=== PATIENT | female | born 1955 | race Caucasian/White ===

== ENCOUNTER 2021-12-24 07:44 | Outpatient (REF) | payer MEDICARE, SELFPAY ==
[2021-12-24 11:17] LABS: MANUAL DIFF FLAG NO
[2021-12-24 11:25] LABS: Basophils Absolute Auto 0.1 X10*3/uL (0.0-0.2); Basophils Percent Auto 0.9 % (0-2); Eosinophils Absolute Auto 0.3 X10*3/uL (0.0-0.4); Eosinophils Percent Auto 3.7 % (0-4); Hematocrit 44.9 % (37.0-47.0); Imm Gran Abs Auto 0.01 X10*3/uL (0.00-0.03); Imm Gran Pct Auto 0.1 % (0.0-0.4); Lymphocytes Absolute Auto 4.1 X10*3/uL (1.2-4.9); Lymphocytes Percent Auto 59.5 % (20-40); Mean Corpuscular HGB Conc 33.4 g/dl (31.0-35.0); Mean Corpuscular Hemoglobin 33.1 pg (27.0-33.0); Mean Corpuscular Volume 99.1 fL (80.0-98.0); Mean Platelet Volume 9.8 fL (9.4-12.3); Monocytes Absolute Auto 0.5 X10*3/uL (0.1-1.2); Monocytes Percent Auto 7.6 % (2-11); Neutrophils Absolute Auto 1.9 x10*3/uL (2.0-8.3); Neutrophils Percent Auto 28.2 % (45-73); Platelet Count 233 X10*3/uL (160-400); Red Blood Count 4.53 X10*6/uL (4.20-5.50); Red Cell Distribution Width 12.6 % (11.0-16.0); White Blood Count 6.8 X10*3/uL (4.8-10.8)
[2021-12-24 11:56] LABS: Vitamin D 25-OH Total 39.7 ng/mL (>30)
[2021-12-24 12:02] LABS: Alanine Aminotransferase 19 U/L (0-31); Albumin Level 4.6 g/dL (3.5-5.0); Alkaline Phosphatase 80 U/L (39-117); Anion Gap 13 (12-20); Aspartate Amino Transferase 25 U/L (5-31); Bilirubin Total 1.6 mg/dL (0.0-1.0); Blood Urea Nitrogen 12 mg/dL (9-16); Calcium 9.2 mg/dL (8.4-10.2); Carbon Dioxide 27 mmol/L (22-29); Chloride 104 mmol/L (96-108); Cholesterol 261 mg/dL; Estimated Glomerular Filt Rate > 60; Glucose Fasting 101 mg/dL (60-99); HDL Cholesterol 94 mg/dL; LDL Cholesterol Calculated 149 mg/dl; Potassium 4.5 mmol/L (3.3-5.1); Sodium 139 mmol/L (135-145); Total Protein 7.5 g/dL (6.5-8.0); Triglycerides 94 mg/dL
== END 2021-12-24 07:45 | disposition home or self-care (01) ==
LOC: HO.HMGCLDS 07:44
PROVIDERS: Visit Provider Internal Medicine
DX: Z00.01 Encounter for general adult medical examination with abnormal findings (principal); M85.89 Other specified disorders of bone density and structure, multiple sites; N95.9 Unspecified menopausal and perimenopausal disorder; R73.01 Impaired fasting glucose; G25.81 Restless legs syndrome
CPT/HCPCS: 36415; 80053; 80061; 82306; 85025

== ENCOUNTER 2022-04-15 07:54 | Outpatient (REF) | payer MEDICARE, SELFPAY ==
[2022-04-15 12:13] LABS: Cholesterol 270 mg/dL; HDL Cholesterol 99 mg/dL; LDL Cholesterol Calculated 156 mg/dl; Triglycerides 76 mg/dL
== END 2022-04-15 07:55 | disposition home or self-care (01) ==
LOC: HO.HMGCLDS 07:54
PROVIDERS: PCP Internal Medicine; Visit Provider Internal Medicine
DX: E78.5 Hyperlipidemia, unspecified (principal)
CPT/HCPCS: 36415; 80061

== ENCOUNTER 2023-01-08 08:27 | Outpatient (AMB) | payer MEDICARE, SELFPAY ==
--- NOTE | 2023-01-08 08:31 | A.OFFPC_ITS ---
<Statement entered by Nereida Corbett MD - 10/13/24 15:19> This note has been administratively?closed. Vital Signs 01/08/23 08:38 Height 5 ft 5 in Weight 137 lb BMI 22.8 BP 126/70 Blood Pressure Location Rt brachial Position Sitting Pulse 73 Pulse Source Pulse Oximeter Pulse Oximetry (%) 96 Oxygen Delivery Method Room Air Intake Visit Reasons: PE Intake Note: Pt is here today for her PE Allergies No Known Allergies Allergy (Verified 02/25/24 13:16) Medication List - Last Reconciled 01/08/23 by Nereida Corbett MD clonazepam 0.5 mg PO BEDTIME multivitamin 1 tab PO DAILY Tobacco use date assessed: 01/08/23 Fall risk assessment: No Falls in past year Last assessed Fall Risk: 01/08/23 Dental Screening Dental Screen Date: 01/08/23 Did you have a dental visit in the last 12 months?: Yes Did you have a dental problem in the last 6 months where you did not have access to dental care?: No Was dental information given to patient?: Patient has dentist HPI PE HPI Details 60-year-old lady with history of restles s leg syndrome, here today for physical exam. She is up-to-date with her screening mammogram, done April 2022 with benign findings and had a bone density done at, ordered by which showed presence of osteopenia in lumbar spine, left femoral neck and left femur. Had a negative Cologuard testing done 2021, is regular with her bowel movements. She is fairly active, walks at least 4 miles daily and eats healthy. Patient however has about 3 drinks on a daily basis, which consists of gin on ice, and occasional wine and a dram of whiskey . She was recently seen at an urgent care clinic in [place] and diagnosed with acute bronchitis, placed on azithromycin, and benzonatate capsules, with improvement, still has lingering occasional productive cough, but no fever. She did have a chest x-ray done which showed presence of scarring and discoid atelectasis in the major fissure, no acute pathology seen. [facility] Medical History (Updated 02/25/24 @ 13:36 by Nereida Corbett MD) Urinary incontinence History of basal cell carcinoma Macrocytosis without anemia Total bilirubin, elevated Alcohol use History of chronic sinusitis Osteopenia of multiple sites Impaired fasting glucose Restless leg syndrome Surgical History History of fusion of cervical spine S/P FESS (functional endoscopic sinus surgery) H/O sinus surgery Hx of colonoscopy Family History Mother Dementia in corticobasal degeneration, Onset Age: 62 Sister Ovarian cancer, Onset Age: 65 Social History Housing: House Patient Tobacco Use Status: Former Tobacco user e-Cigarette/Vaping Use: Never Used Current occupational status: retired Cognitive needs: No Hearing needs: No Vision needs: Yes Female Reproductive History Menstrual Menopause type: natural Other: Sees Dr. Montes yearly her pelvic exam, and orders bone density scan. Questionnaire PHQ-9 Over the last 2 weeks, how often have you been bothered by any of the following problems? 1. Little interest or pleasure in doing things: not at all 2. Feeling down, depressed, or hopeless: not at all 3. Trouble falling or staying asleep, or sleeping too much: not at all 4. Feeling tired or having little energy: not at all 5. Poor appetite or overeating: not at all 6. Feeling bad about yourself - or that you are a failure or have let yourself or your family down: not at all 7. Trouble concentrating on things, such as reading the newspaper or watching television: not at all 8. Moving or speaking so slowly that other people could have noticed. Or the opposite - being so fidgety or restless that you have been moving around a lot more than usual: not at all 9. Thoughts that you would be better off or of hurting yourself in some way: not at all Total score: 0 Depression Screening Interpretation: Negative 84989 - PHQ-9 Billing: Yes Source: Developed by Drs. Hector Lewis, Bonnie Mart, Darinel Alanis and colleagues, with an educational bryan from [employer]. Thrive Questionnaire Date Thrive assessed: 01/08/23 I am a: Patient What is your living situation today?: I have a steady place to live Within the past 12 months, did the food you bought not last and you didn't have the money to get more?: Never true Within the past 12 months, did you worry whether your food would run out before you got money to buy more?: Never true Do you have trouble paying for medicines?: No Do you have trouble getting transportation to medical appointments?: No Do you have trouble paying your heating and electricity bill?: No Do you have trouble taking care of your child, family member or friend?: No Do you have trouble with day-to-day activities such as bathing, preparing meals, shopping, managing finances, etc.?: No Are you currently unemployed and looking for a job?: No Are you interested in more education?: No AUDIT C Alcohol Use Questionnaire (AUDIT-C) 1. How often do you have a drink containing alcohol?: 4 or more times a week 2. How many drinks containing alcohol do you have on a typical day when you are drinking?: 3 or 4 3. How often do you have six or more drinks on one occasion?: Never Total Score: 5 Score Reviewed/Action Taken: Yes (Patient advised to cut back on her alcohol intake) CINTHIA-7 AMB Questionnaire CINTHIA-7 Date CINTHIA - 7 assessed: 01/08/23 Feeling nervous, anxious, or on edge: 0 = Not at all Not being able to stop or control worryin = Not at all Worrying too much about different things: 0 = Not at all Trouble relaxin = Not at all Being so restless that it is hard to sit still: 0 = Not at all Becoming easily annoyed or irritable: 0 = Not at all Feeling afraid as if something awful might happen: 0 = Not at all Total CINTHIA-7 score (0-4 normal; 5-9 mild; 10-14 moderate; 15-21 severe): 0 Source: Developed by Drs. Hector Lewis, Bonnie Mart, Darinel Alanis and colleagues, with an educational bryan from [employer]. CINTHIA-7 Assessment Billing CINTHIA-7 Assessment Tool: CINTHIA-7 Assessment 54594 Review of Systems Const Denies body aches, Denies fatigue, Denies fever(s), Denies headache(s) and Denies weakness Eyes Details: She would here goes to [place] [facility], has mono vision, wears a contact lens in her left eye and uses her right eye for reading, has an appointment scheduled for later this month ENT Denies dizziness, Denies headache(s), Denies nasal congestion, Denies nasal discharge and Denies sore throat Card Denies chest pain, Denies lightheadedness, Denies palpitations and Denies dyspnea Resp Denies cough, Denies dyspnea and Denies wheezing GI Denies abdominal pain, Denies change in bowel habits and Denies heartburn Denies hematuria, Denies urinary frequency, Denies dysuria and Denies urinary urgency Musc Reports no additional complaints Skin/Breast Details: Sees [facility], had basal cell CA removed from side of her nose recently Denies breast pain, Denies breast mass, Denies lesions and Denies rash Neuro Denies dizziness, Denies headache(s) and Denies weakness Psych Details: takes clonazepam half a tablet prn for restless leg syndrome started by her neurologist Dr. Moreno Reports as per HPI Endo Denies fatigue, Denies polydipsia, Denies polyuria and Denies palpitations Mikie/Lymph Denies easy bruising Aller/Immun Denies seasonal rhinorrhea and Denies wheezing Physical exam (Primary Care) Vital Signs: Last Vital Signs Pulse 73 01/08/23 08:38 BP 126/70 01/08/23 08:38 Pulse Ox 96 01/08/23 08:38 Oxygen Delivery Method Room Air 01/08/23 08:38 BMI result Body Mass Index 22.8 Tobacco/Smoking Status: Tobacco use Status Tobacco use date assessed 01/08/23 01/08/23 08:39 Patient Tobacco Use Status Former Tobacco user 01/08/23 08:31 e-Cigarette/Vaping Use Never Used 01/08/23 08:31 PHQ-9: PHQ-9 Score PHQ-9: Total score 0 01/08/23 10:01 Depression Screening Interpretation: Negative Thrive Assessment: Date of Thrive Assessment Date Thrive assessed 01/08/23 01/08/23 09:23 Const General: comfortable, no acute distress and alert Orientation/consciousness: patient oriented x3 Limitations: no limitations HENMT Ears: external ears normal, TM's normal bilaterally and EAC's normal General nose exam: Normal external nose present and No nasal discharge present Mouth: Normal oral and palatal mucosa present, oropharynx normal and moist mucous membranes Eyes General: appearance normal, both eyes and all related structures Conjunctivae: conjunctivae normal Sclerae: sclerae normal Pupils: Equal, round and reactive pupils present EOM: EOMs intact bilaterally Neck Neck: Yes full ROM, Yes no lymphadenopathy and Yes supple Chest Breast/axilla palpation: normal palpation of the breasts Resp Effort & Inspection: normal respiratory effort and able to speak in complete sentences Auscultation: clear to auscultation bilaterally Cardio Rate: regular rate Rhythm: regular rhythm Heart sounds: S1 normal heart sound present and S2 normal heart sound present GI Palpation (GI): Soft to palpation, nontender and no masses Auscultation: normal bowel sounds General: Yes deferred (sees Dr Montes) Back/Spine/Pelvis Back: No back tenderness Skin General skin exam: no rashes or lesions noted Neuro General: patient oriented x3, gait normal, tone normal, moves all extremities, Normal light touch and pain sensation and no focal motor deficits Cranial nerves: Yes CN's II-XII intact bilaterally and Yes Equal, round and reactive pupils present Cognition (Neuro): normal cognition Extrem General: Yes full ROM, Yes no joint enlargement, Yes no clubbing, cyanosis or edema and Yes no calf tenderness Psych Appearance: grossly normal and well kempt Mental Status: mental status grossly normal Speech and movement: Normal speech and movement present Affect: normal affect Attitude: cooperative Thought process: Normal thought process present Coding Level of Care Code Est Pt Prev Care >65y(86201) Diagnoses Hyperlipidemia E78.5 Alcohol use Z72.89 Osteopenia of multiple sites M85.89 Impaired fasting glucose R73.01 Restless leg syndrome G25.81 Cough R05.9 Family history of ovarian cancer Z80.41 Annual visit for general adult medical examination with abnormal findings Z00.01 Macrocytosis without anemia D75.89 Total bilirubin, elevated R17 Additional Codes CINTHIA-7 Assessment Billing - CINTHIA-7 Assessment Tool: CINTHIA-7 Assessment 24085 ([id number])
[2023-01-08 08:38] VITALS: BP 126/70; PULSE 73; O2SAT 96; BMI 22.8
== END 2023-01-08 09:55 | disposition home or self-care (01) ==
PROVIDERS: Visit Provider Internal Medicine
DX: E78.5 Hyperlipidemia, unspecified (principal); Z72.89 Other problems related to lifestyle; M85.89 Other specified disorders of bone density and structure, multiple sites; R73.01 Impaired fasting glucose; G25.81 Restless legs syndrome; R05.9 Cough, unspecified; Z80.41 Family history of malignant neoplasm of ovary; Z00.01 Encounter for general adult medical examination with abnormal findings; D75.89 Other specified diseases of blood and blood-forming organs; R17 Unspecified jaundice; D72.829 Elevated white blood cell count, unspecified; D72.820 Lymphocytosis (symptomatic)
CPT/HCPCS: 99499

== ENCOUNTER 2023-01-10 07:34 | Outpatient (REF) | payer MEDICARE, SELFPAY ==
[2023-01-10 11:44] LABS: Basophils Absolute Auto 0.1 X10*3/uL (0.0-0.2); Basophils Percent Auto 0.6 % (0-2); Eosinophils Absolute Auto 0.2 X10*3/uL (0.0-0.4); Eosinophils Percent Auto 2.4 % (0-4); Hematocrit 42.6 % (37.0-47.0); Hemoglobin 14.1 g/dl (12.0-16.0); Imm Gran Abs Auto 0.01 X10*3/uL (0.00-0.03); Imm Gran Pct Auto 0.1 % (0.0-0.4); Lymphocytes Absolute Auto 5.1 X10*3/uL (1.2-4.9); Lymphocytes Percent Auto 65.9 % (20-40); MANUAL DIFF FLAG SCAN; Mean Corpuscular HGB Conc 33.1 g/dl (31.0-35.0); Mean Corpuscular Hemoglobin 32.8 pg (27.0-33.0); Mean Corpuscular Volume 99.1 fL (80.0-98.0); Mean Platelet Volume 9.8 fL (9.4-12.3); Monocytes Absolute Auto 0.6 X10*3/uL (0.1-1.2); Monocytes Percent Auto 7.7 % (2-11); Neutrophils Absolute Auto 1.8 x10*3/uL (2.0-8.3); Neutrophils Percent Auto 23.3 % (45-73); Platelet Count 232 X10*3/uL (160-400); Red Cell Distribution Width 11.9 % (11.0-16.0); SCAN SMEAR FLAG 1; White Blood Count 7.8 X10*3/uL (4.8-10.8)
[2023-01-10 12:46] LABS: SLIDE REVIEW VERIFIED
[2023-01-10 13:43] LABS: Estimated Average Glucose 103 mg/dL; Hemoglobin A1c % 5.2 %
[2023-01-10 15:08] LABS: Alanine Aminotransferase 16 U/L (0-31); Albumin Level 4.1 g/dL (3.5-5.0); Alkaline Phosphatase 73 U/L (39-117); Anion Gap 15 (12-20); Aspartate Amino Transferase 24 U/L (5-31); Bilirubin Total 1.2 mg/dL (0.0-1.0); Blood Urea Nitrogen 13 mg/dL (9-16); Calcium 9.4 mg/dL (8.4-10.2); Carbon Dioxide 25 mmol/L (22-29); Chloride 105 mmol/L (96-108); Cholesterol 249 mg/dL; Estimated Glomerular Filt Rate > 60; Glucose Fasting 98 mg/dL (60-99); HDL Cholesterol 87 mg/dL; LDL Cholesterol Calculated 144 mg/dl; Potassium 4.2 mmol/L (3.3-5.1); Sodium 141 mmol/L (135-145); Total Protein 7.2 g/dL (6.5-8.0); Triglycerides 91 mg/dL
[2023-01-10 15:26] LABS: TSH reflex Free T4 3.34 uIU/mL (0.32-4.0); Vitamin D 25-OH Total 74.8 ng/mL (>30)
[2023-01-10 15:42] LABS: Folate 18.7 ng/mL (> or = 4.0); Vitamin B12 553 pg/mL (200-900)
== END 2023-01-10 07:35 | disposition home or self-care (01) ==
LOC: HO.HMGCLDS 07:34
PROVIDERS: PCP Internal Medicine; Visit Provider Internal Medicine
DX: E78.5 Hyperlipidemia, unspecified (principal); M85.89 Other specified disorders of bone density and structure, multiple sites; R73.01 Impaired fasting glucose; G25.81 Restless legs syndrome; R00.2 Palpitations; Z72.89 Other problems related to lifestyle
CPT/HCPCS: 36415; 80053; 80061; 82306; 82607; 82746; 83036; 84443; 85025

== ENCOUNTER 2023-01-13 14:32 | Outpatient (REF) | payer MEDICARE, SELFPAY ==
--- NOTE | ~2023-01-13 | XR_ITS ---
EXAMINATION: XR CHEST CLINICAL INFORMATION: Cough. COMPARISON: None available. TECHNIQUE: 2 views of the chest were obtained. FINDINGS: No significant abnormality is noted involving the heart, lungs, mediastinum, bony thorax or soft tissues. At 2 cervical fixation plate is noted in place. XR/XR chest 2V IMPRESSION: No acute cardiopulmonary process.
== END 2023-01-13 14:33 | disposition home or self-care (01) ==
LOC: HO.HMGCX 14:32
PROVIDERS: PCP Internal Medicine; Visit Provider Internal Medicine
DX: R05.9 Cough, unspecified (principal)
CPT/HCPCS: 71046

== ENCOUNTER 2024-02-25 12:46 | Outpatient (AMB) | payer MEDICARE, SELFPAY ==
--- NOTE | 2024-02-25 12:52 | MHC.PC.OV ---
Vital Signs 02/25/24 12:56 Height 5 ft 5 in Weight 135 lb BMI 22.5 BP 110/80 Blood Pressure Location Lt brachial Position Sitting Pulse 81 Pulse Source Pulse Oximeter Pulse Oximetry (%) 100 Oxygen Delivery Method Room Air Intake Visit Reasons: Annual PE/Booked too soon/ok due for Jan Intake Note: Patient here for physical exam. Last mammo: 2022 BD: 2022 Allergies No Known Allergies Allergy (Verified 02/25/24 13:16) Medication List - Last Reconciled 02/25/24 by Nereida Corbett MD clonazepam 0.5 mg PO BEDTIME multivitamin 1 tab PO DAILY Tobacco use date assessed: 02/25/24 Fall risk assessment: No Falls in past year Last assessed Fall Risk: 02/25/24 Dental Screening Dental Screen Date: 02/25/24 Did you have a dental visit in the last 12 months?: Yes Did you have a dental problem in the last 6 months where you did not have access to dental care?: No Was dental information given to patient?: Patient has dentist HPI Annual PE/Booked too soon/ok due for Jan HPI Details 68-year-old lady here today for physical exam. She is up-to-date with her screening mammogram done at [facility], in 04/2023 with benign findings . Last bone density was done in 2019 ordered by her OB, which showed presence of osteopenia in lumbar spine, left hip and left femur.. Complaining of urinary incontinence occurring at least 6-8 times this year while walking , could not feel the urge to urinate, denies any urinary symptoms. Continues to drink on a regular basis, usually has a martini in the afternoon and occasional wine at night with dinner time. She has restless leg syndrome, prescribed clonazepam 0.5 mg to be taken at bedtime by her previous provider Dr. Moreno. [facility] Medical History (Updated 02/25/24 @ 13:36 by Nereida Corbett MD) Urinary incontinence History of basal cell carcinoma Macrocytosis without anemia Total bilirubin, elevated Alcohol use History of chronic sinusitis Osteopenia of multiple sites Impaired fasting glucose Restless leg syndrome Surgical History History of fusion of cervical spine S/P FESS (functional endoscopic sinus surgery) H/O sinus surgery Hx of colonoscopy Family History Mother Dementia in corticobasal degeneration, Onset Age: 62 Sister Ovarian cancer, Onset Age: 65 Social History Housing: House Patient Tobacco Use Status: Former Tobacco user e-Cigarette/Vaping Use: Never Used Current occupational status: retired Cognitive needs: No Hearing needs: No Vision needs: Yes Questionnaire PHQ-9 Over the last 2 weeks, how often have you been bothered by any of the following problems? 1. Little interest or pleasure in doing things: not at all 2. Feeling down, depressed, or hopeless: not at all 3. Trouble falling or staying asleep, or sleeping too much: not at all 4. Feeling tired or having little energy: several days 5. Poor appetite or overeating: not at all 6. Feeling bad about yourself - or that you are a failure or have let yourself or your family down: not at all 7. Trouble concentrating on things, such as reading the newspaper or watching television: several days 8. Moving or speaking so slowly that other people could have noticed. Or the opposite - being so fidgety or restless that you have been moving around a lot more than usual: not at all 9. Thoughts that you would be better off or of hurting yourself in some way: not at all Total score: 2 Depression Screening Interpretation: Negative Depression Screening Done: Yes 93854 - PHQ-9 Billing: Yes Source: Developed by Drs. Hector Lewis, Bonnie Mart, Darinel Alanis and colleagues, with an educational bryan from [employer]. Thrive Questionnaire Date Thrive assessed: 01/08/23 I am a: Patient What is your living situation today?: I have a steady place to live Within the past 12 months, did the food you bought not last and you didn't have the money to get more?: Never true Within the past 12 months, did you worry whether your food would run out before you got money to buy more?: Never true Do you have trouble paying for medicines?: No Do you have trouble getting transportation to medical appointments?: No Do you have trouble paying your heating and electricity bill?: No Do you have trouble taking care of your child, family member or friend?: No Do you have trouble with day-to-day activities such as bathing, preparing meals, shopping, managing finances, etc.?: No Are you interested in more education?: No Please select the resources that you would like help with: None Currently or been in a relationship where the following occur: No concerns reported THRIVE Score: 0 AUDIT C Alcohol Use Questionnaire (AUDIT-C) 1. How often do you have a drink containing alcohol?: 4 or more times a week (martini in the afternoon, wine at night ) 2. How many drinks containing alcohol do you have on a typical day when you are drinking?: 1 or 2 3. How often do you have six or more drinks on one occasion?: Never Total Score: 4 CINTHIA-7 AMB Questionnaire CINTHIA-7 Date CINTHIA - 7 assessed: 01/08/23 Feeling nervous, anxious, or on edge: 1 = Several days Not being able to stop or control worryin = Not at all Worrying too much about different things: 1 = Several days Trouble relaxin = Not at all Being so restless that it is hard to sit still: 0 = Not at all Becoming easily annoyed or irritable: 0 = Not at all Feeling afraid as if something awful might happen: 0 = Not at all Total CINTHIA-7 score (0-4 normal; 5-9 mild; 10-14 moderate; 15-21 severe): 2 Source: Developed by Drs. Hector Lewis, Bonnie Mart, Darinel Alanis and colleagues, with an educational bryan from [employer]. CINTHIA-7 Assessment Billing CINTHIA-7 Assessment Tool: CINTHIA-7 Assessment 39739 Review of Systems Const Denies body aches, Denies fatigue, Denies fever(s), Denies headache(s) and Denies weakness Eyes Details: She would here goes to [facility], has mono vision, wears a contact lens in her left eye and uses her right eye for reading, has an appointment scheduled for later this month ENT Denies dizziness, Denies headache(s), Denies nasal congestion, Denies nasal discharge and Denies sore throat Card Denies chest pain, Denies lightheadedness, Denies palpitations and Denies dyspnea Resp Denies cough, Denies dyspnea and Denies wheezing GI Denies abdominal pain, Denies change in bowel habits and Denies heartburn Denies hematuria, Denies urinary frequency, Denies dysuria and Denies urinary urgency Musc Reports no additional complaints Skin/Breast Details: Sees [facility], had basal cell CA removed from side of her nose recently Denies breast pain, Denies breast mass, Denies lesions and Denies rash Neuro Denies dizziness, Denies headache(s) and Denies weakness Psych Details: takes clonazepam half a tablet prn for restless leg syndrome started by her neurologist Dr. Moreno Reports as per HPI Endo Denies fatigue, Denies polydipsia, Denies polyuria and Denies palpitations Mikie/Lymph Denies easy bruising Aller/Immun Denies seasonal rhinorrhea and Denies wheezing Physical exam (Primary Care) Vital Signs: Last Vital Signs Pulse 81 02/25/24 12:56 BP 110/80 02/25/24 12:56 Pulse Ox 100 02/25/24 12:56 Oxygen Delivery Method Room Air 02/25/24 12:56 BMI result Body Mass Index 22.5 Tobacco/Smoking Status: Tobacco use Status Tobacco use date assessed 02/25/24 02/25/24 13:00 Patient Tobacco Use Status Former Tobacco user 02/25/24 12:54 e-Cigarette/Vaping Use Never Used 02/25/24 12:54 PHQ-9: PHQ-9 Score PHQ-9: Total score 2 03/01/24 01:32 Depression Screening Interpretation: Negative Thrive Assessment: Date of Thrive Assessment Date Thrive assessed 01/08/23 02/25/24 12:54 Currently or been in a relationship where the following occur: No concerns reported Const General: comfortable, no acute distress and alert Orientation/consciousness: patient oriented x3 Limitations: no limitations HENMT Ears: external ears normal, TM's normal bilaterally and EAC's normal General nose exam: Normal external nose present and No nasal discharge present Mouth: Normal oral and palatal mucosa present, oropharynx normal and moist mucous membranes Eyes General: appearance normal, both eyes and all related structures Conjunctivae: conjunctivae normal Sclerae: sclerae normal Pupils: Equal, round and reactive pupils present EOM: EOMs intact bilaterally Neck Neck: Yes full ROM, Yes no lymphadenopathy and Yes supple Chest Breast/axilla palpation: normal palpation of the breasts Resp Effort & Inspection: normal respiratory effort and able to speak in complete sentences Auscultation: clear to auscultation bilaterally Cardio Rate: regular rate Rhythm: regular rhythm Heart sounds: S1 normal heart sound present and S2 normal heart sound present GI Palpation (GI): Soft to palpation, nontender and no masses Auscultation: normal bowel sounds General: Yes deferred (sees Dr Montes) Back/Spine/Pelvis Back: No back tenderness Skin General skin exam: no rashes or lesions noted Neuro General: patient oriented x3, gait normal, tone normal, moves all extremities, Normal light touch and pain sensation and no focal motor deficits Cranial nerves: Yes CN's II-XII intact bilaterally and Yes Equal, round and reactive pupils present Cognition (Neuro): normal cognition Extrem General: Yes full ROM, Yes no joint enlargement, Yes no clubbing, cyanosis or edema and Yes no calf tenderness Psych Appearance: grossly normal and well kempt Mental Status: mental status grossly normal Speech and movement: Normal speech and movement present Affect: normal affect Attitude: cooperative Thought process: Normal thought process present Assessment and Plan Assessment & Plan (1) Annual visit for general adult medical examination with abnormal findings: Code(s): Z00.01 - Encounter for general adult medical examination with abnormal findings Plan: Will check appropriate labs. Recommended dental visit every 6 months and regular eye exams, at least every 2 years. Take adequate calcium in diet and vitamin-D 3 at 2000 IU per cap once a day, in addition to weight-bearing exercises to help maintain good muscle tone and weight control. Instructed to do self-breast exam, and continue with regular mammogram screening, overdue for her bone density scan again, patient states that she usually gets it done in ordered by Dr. Hager at [facility]. Up-to-date with her screening colonoscopy, had Cologuard done in 2021 which came back with negative finding, due again for recheck in 2023 (2) Macrocytosis without anemia: Code(s): D75.89 - Other specified diseases of blood and blood-forming organs (3) Fatigue: Code(s): R53.83 - Other fatigue (4) Urinary incontinence: Code(s): R32 - Unspecified urinary incontinence Plan: Patient currently on Myrbetriq ER 25 mg once a day (5) Hyperlipidemia: Code(s): E78.5 - Hyperlipidemia, unspecified Plan: Will check fasting lipid panel, continue on a healthy diet and getting regular exercise (6) Alcohol use: Code(s): Z72.89 - Other problems related to lifestyle Plan: Patient strongly advised to cut back on her drinking were abstain altogether. Patient however not interested in joining [employer] or a tendon alcohol support group or take anything to help her stop drinking (7) Osteopenia of multiple sites: Comment: Bone density Ordered by Dr. Carmona 03/25/2019, showing osteopenia in AP spine, left femoral neck and left hip Code(s): M85.89 - Other specified disorders of bone density and structure, multiple sites Plan: Due for a repeat bone density scan, patient states that she has had 1 done at [facility] after the, will get copy of results (8) Restless leg syndrome: Comment: Prescribed clonazepam 0.5 mg at bedtime by Dr. Tim Le Code(s): G25.81 - Restless legs syndrome Plan Ordered CBC, lipid panel, vitamin B12 and folic acid, TSH with free T4, liver enzymes, basic metabolic panel and vitamin-D level. Orders: Orders Complete Blood Count Auto Diff 02/25/24 D75.89 - Other specified diseases of blood and blood-forming organs, E78.5 - Hyperlipidemia, unspecified, R53.83 - Other fatigue, Z13.1 - Encounter for screening for diabetes mellitus, Z13.220 - Encounter for screening for lipoid disorders Lipid Panel 02/25/24 D75.89 - Other specified diseases of blood and blood-forming organs, E78.5 - Hyperlipidemia, unspecified, R53.83 - Other fatigue, Z13.1 - Encounter for screening for diabetes mellitus, Z13.220 - Encounter for screening for lipoid disorders Vitamin B12 and Folate 02/25/24 D75.89 - Other specified diseases of blood and blood-forming organs, E78.5 - Hyperlipidemia, unspecified, R53.83 - Other fatigue, Z13.1 - Encounter for screening for diabetes mellitus, Z13.220 - Encounter for screening for lipoid disorders TSH reflex Free T4 02/25/24 D75.89 - Other specified diseases of blood and blood-forming organs, E78.5 - Hyperlipidemia, unspecified, R53.83 - Other fatigue, Z13.1 - Encounter for screening for diabetes mellitus, Z13.220 - Encounter for screening for lipoid disorders Alanine Aminotransferase 02/25/24 D75.89 - Other specified diseases of blood and blood-forming organs, E78.5 - Hyperlipidemia, unspecified, R53.83 - Other fatigue, Z13.1 - Encounter for screening for diabetes mellitus, Z13.220 - Encounter for screening for lipoid disorders Aspartate Amino Transferase 02/25/24 D75.89 - Other specified diseases of blood and blood-forming organs, E78.5 - Hyperlipidemia, unspecified, R53.83 - Other fatigue, Z13.1 - Encounter for screening for diabetes mellitus, Z13.220 - Encounter for screening for lipoid disorders Basic Metabolic Panel Fasting 02/25/24 D75.89 - Other specified diseases of blood and blood-forming organs, E78.5 - Hyperlipidemia, unspecified, R53.83 - Other fatigue, Z13.1 - Encounter for screening for diabetes mellitus, Z13.220 - Encounter for screening for lipoid disorders Vitamin D 25-OH Total 02/25/24 D75.89 - Other specified diseases of blood and blood-forming organs, E78.5 - Hyperlipidemia, unspecified, R53.83 - Other fatigue, Z13.1 - Encounter for screening for diabetes mellitus, Z13.220 - Encounter for screening for lipoid disorders Medications: New Myrbetriq ER (mirabegron) 25 mg PO DAILY 30 tabs 1RF NS R32 - Unspecified urinary incontinence Coding Level of Care Code Est Pt [facility] Care >65y(04772) Diagnoses Annual visit for general adult medical examination with abnormal findings Z00.01 Macrocytosis without anemia D75.89 Fatigue R53.83 Urinary incontinence R32 Hyperlipidemia E78.5 Alcohol use Z72.89 Osteopenia of multiple sites M85.89 Restless leg syndrome G25.81 Additional Codes CINTHIA-7 Assessment Billing - CINTHIA-7 Assessment Tool: CINTHIA-7 Assessment [id number] ([id number])
[2024-02-25 12:56] VITALS: BP 110/80; PULSE 81; O2SAT 100; BMI 22.5
== END 2024-02-25 13:43 | disposition home or self-care (01) ==
PROVIDERS: PCP Internal Medicine; Visit Provider Internal Medicine
DX: Z00.01 Encounter for general adult medical examination with abnormal findings (principal); D75.89 Other specified diseases of blood and blood-forming organs; R53.83 Other fatigue; R32 Unspecified urinary incontinence; E78.5 Hyperlipidemia, unspecified; Z72.89 Other problems related to lifestyle; M85.89 Other specified disorders of bone density and structure, multiple sites; G25.81 Restless legs syndrome

== ENCOUNTER → 2024-02-25 12:46 | Outpatient (BNVA) | payer MEDICARE, SELFPAY | PROVIDERS: PCP Internal Medicine; Visit Provider Internal Medicine | DX: Z00.01 Encounter for general adult medical examination with abnormal findings (principal); D75.89 Other specified diseases of blood and blood-forming organs; R53.83 Other fatigue; R32 Unspecified urinary incontinence; E78.5 Hyperlipidemia, unspecified; M85.89 Other specified disorders of bone density and structure, multiple sites; G25.81 Restless legs syndrome; Z72.89 Other problems related to lifestyle | CPT/HCPCS: 96127 ==

== ENCOUNTER 2024-03-08 08:15 | Outpatient (REF) | payer MEDICARE, SELFPAY ==
[2024-03-08 10:35] LABS: Hematocrit 44.7 % (37.0-47.0); Hemoglobin 14.9 g/dl (12.0-16.0); Mean Corpuscular HGB Conc 33.3 g/dl (31.0-35.0); Mean Corpuscular Hemoglobin 33.6 pg (27.0-33.0); Mean Corpuscular Volume 100.7 fL (80.0-98.0); Mean Platelet Volume 9.4 fL (9.4-12.3); Platelet Count 238 X10*3/uL (160-400); Red Blood Count 4.44 X10*6/uL (4.20-5.50); Red Cell Distribution Width 12.3 % (11.0-16.0)
[2024-03-08 10:36] LABS: WBC ABN SCTR FOR CBC 1
[2024-03-08 11:10] LABS: Alanine Aminotransferase 24 U/L (0-31); Anion Gap 14 (12-20); Aspartate Amino Transferase 26 U/L (5-31); Blood Urea Nitrogen 12 mg/dL (9-16); Calcium 9.6 mg/dL (8.4-10.2); Carbon Dioxide 27 mmol/L (22-29); Chloride 104 mmol/L (96-108); Cholesterol 248 mg/dL (<200); Estimated Glomerular Filt Rate > 60; Glucose Fasting 106 mg/dL (60-99); HDL Cholesterol 88 mg/dL (>40); LDL Cholesterol Calculated 126 mg/dL (<100); Potassium 4.1 mmol/L (3.3-5.1); Sodium 141 mmol/L (135-145); TSH reflex Free T4 1.46 uIU/mL (0.32-4.0); Triglycerides 173 mg/dL (<150); Vitamin D 25-OH Total 78.1 ng/mL (>30)
[2024-03-08 11:14] LABS: Folate > 20.0 ng/mL (> or = 4.0); Vitamin B12 619 pg/mL (200-900)
[2024-03-08 11:30] LABS: Lymphocytes Percent Manual 79 % (20-40); Monocytes Percent Manual 4 % (2-11); Neutrophils Percent Manual 17 % (45-73)
[2024-03-08 11:32] LABS: Platelet Estimate NORMAL (NORMAL); Platelet Morphology Comment NORMAL; RBC Morphology NORMAL
[2024-03-08 11:39] LABS: Lymphocytes Absolute Manual 11.1 X10*3/uL (1.2-4.9); Monocytes Absolute Manual 0.6 X10*3/uL (0.1-1.2); White Blood Count 14.1 X10*3/uL (4.8-10.8)
[2024-03-08 11:41] LABS: Band Neutrophils Percent 0 % (3-5); Neutrophils Absolute Manual 2.4 X10*3/uL (2.0-8.3)
== END 2024-03-08 08:16 | disposition home or self-care (01) ==
LOC: HO.HMGCLDS 08:15
PROVIDERS: PCP Internal Medicine; Visit Provider Internal Medicine
DX: D75.89 Other specified diseases of blood and blood-forming organs (principal); R53.83 Other fatigue; E78.5 Hyperlipidemia, unspecified; Z13.220 Encounter for screening for lipoid disorders; Z13.1 Encounter for screening for diabetes mellitus
CPT/HCPCS: 36415; 80048; 80061; 82306; 82607; 82746; 84443; 84450; 84460; 85007; 85027

== ENCOUNTER 2024-09-27 10:21 | Outpatient (REF) | payer MEDICARE, SELFPAY ==
[2024-09-27 15:33] LABS: Influenza A PCR NEGATIVE (Negative); Influenza B PCR NEGATIVE (Negative); Resp Syncy Virus RNA Qual PCR NEGATIVE (Negative); SARS COV2 PCR INHOUSE NEGATIVE (Negative)
== END 2024-09-27 10:22 | disposition home or self-care (01) ==
LOC: HO.LAB 10:21
PROVIDERS: PCP Internal Medicine; Visit Provider Physician Assistant
DX: J06.9 Acute upper respiratory infection, unspecified (principal); R09.89 Other specified symptoms and signs involving the circulatory and respiratory systems
CPT/HCPCS: 0241U; 99212

== ENCOUNTER 2024-09-27 10:21 | Outpatient (AMB) | payer MEDICARE, SELFPAY ==
--- NOTE | 2024-09-27 10:24 | AM.OFFWIN_ITS ---
Intake Vital Signs 09/27/24 10:25 Weight 137 lb BP 116/78 Blood Pressure Location Lt brachial Position Sitting Pulse 72 Pulse Source Pulse Oximeter Temp 98.6 F Temp Source Oral Pulse Oximetry (%) 99 Oxygen Delivery Method Room Air Intake Visit Reasons: EP cough, congestion, aches Intake Note: Patient here for cough, congestion and body aches which started friday. Patient Tobacco Use Status: Former Tobacco user Allergies No Known Allergies Allergy (Verified 09/27/24 10:26) Do you need a note to return to daycare/school/sports/work: No HPI HPI Comments History of Present Illness Details History - The patient is a 69-year-old female pr esenting with congestion, cough, and chest pressure x5 days. - Symptoms began last Friday with sli ght severity and have progressively worsened. - The patient has severe nighttime cough ing, waking her , but has no fever on self-assessment. - She reports mild sinus discomfort attr ibuted to congestion, with no ear pain or headache. - Diagnosed with Chronic Lymphocytic Makenna kemia (CLL) six months prior, awaits oncologist follow-up, and no chemotherapy started. - Self-treatment includes albuterol and a decongestant, with alleviation noted. - She recalls a similar illness in Octob er of the previous year, where an inhaler was prescribed. Physical Exam General: Cooperative, healthy appearing, comfortable and no acute distress Orientation/consciousness: Patient oriented x3 Limitations: No limitations Head: Normal to inspection Ears: Hearing grossly normal bilaterally, external ears normal and TM's normal bilaterally Nose: Normal external nose present, Normal nares present and No nasal discharge present Face and sinus: Normal facial exam and Yes sinuses nontender Mouth: Normal oral and palatal mucosa present and moist mucous membranes Throat: Yes tonsils normal, Yes uvula midline. Posterior oropharynx erythema Eyes: Appearance normal, both eyes and all related structures Neck: Normal visual inspection Respiratory: Clear to auscultation bilaterally. Normal respiratory effort, able to speak in complete sentences, Actively coughing, no respiratory distress, not tachypneic, no tripod positioning and no use of accessory muscles Cardiovascular: Regular rate and rhythm. Normal S1 and S2 Skin: No rashes or lesions noted Neuro: Patient oriented x3 Extremities: Normal to inspection and Yes no clubbing, cyanosis or edema [facility] Medical History (Updated 09/27/24 @ 10:52 by Simran Maldonado PA-C) Atypical lymphocytosis Leukocytosis Urinary incontinence History of basal cell carcinoma Macrocytosis without anemia Total bilirubin, elevated Alcohol use History of chronic sinusitis Osteopenia of multiple sites Impaired fasting glucose Restless leg syndrome Surgical History History of fusion of cervical spine S/P FESS (functional endoscopic sinus surgery) H/O sinus surgery Hx of colonoscopy Family History Mother Dementia in corticobasal degeneration, Onset Age: 62 Sister Ovarian cancer, Onset Age: 65 Social History Housing: House Patient Tobacco Use Status: Former Tobacco user e-Cigarette/Vaping Use: Never Used Current occupational status: retired Cognitive needs: No Hearing needs: No Vision needs: Yes Review of Systems Const All systems reviewed & are unremarkable except as noted in HPI and below Physical Exam Vital Signs: Last Vital Signs Temp 98.6 F 09/27/24 10:25 Pulse 72 09/27/24 10:25 BP 116/78 09/27/24 10:25 Pulse Ox 93 09/27/24 10:25 Oxygen Delivery Method Room Air 09/27/24 10:25 Assessment & Plan Assessment & Plan (1) URI, acute: Code(s): J06.9 - Acute upper respiratory infection, unspecified Plan: VSS, pt well appearing and PE unremarkable. I conducted tests for flu, COVID- 19, and RSV, awaiting results. A Tessalon Perles prescription was provided to manage nocturnal coughing, recognizing the risk of prolonged cough suppression. Continuation of current decongestant and inhaler use was advised, supplemented by a daily antihistamine. I affirmed no immediate need for a chest X-ray due to satisfactory oxygen levels and normal lung auscultation. The patient was instructed to return to the clinic if symptomatology worsens, with escalated management including possible corticosteroid therapy and/or CXR considered. Patient was informed and verbally consented to the use of an ambient scribe for clinic note documentation during this visit Orders: Orders SARS-CoV2/FLU/RSV Today R09.89 - Other specified symptoms and signs involving the circulatory and respiratory systems Medications: New benzonatate 200 mg PO BEDTIME PRN 10 caps 0RF cough Coding Level of Care Code Est Pt Level 3 (37202) Diagnoses URI, acute J06.9
[2024-09-27 10:25] VITALS: BP 116/78; PULSE 72; TEMP 37; O2SAT 99
== END 2024-09-27 10:58 | disposition home or self-care (01) ==
PROVIDERS: PCP Internal Medicine; Visit Provider Physician Assistant
DX: J06.9 Acute upper respiratory infection, unspecified (principal)

== ENCOUNTER 2024-09-30 10:05 | Outpatient (REF) | payer MEDICARE, SELFPAY ==
--- NOTE | ~2024-09-30 | XR_ITS ---
EXAMINATION: XR CHEST CLINICAL INFORMATION: R05.9 - Cough, unspecified COMPARISON: January 13, 2023 TECHNIQUE: 2 views of the chest were obtained. FINDINGS: Hyperinflated lungs. No consolidation, pleural effusion or pneumothorax. Pulmonary reticular pattern. Linear opacity right lower hemithorax likely scarring. Cardiomediastinal silhouette size is normal. Calcified plaque thoracic aortic arch. Multilevel thoracic and upper lumbar spondylosis. Osteopenia versus osteoporosis. S-shaped curvature of the thoracolumbar spine. Metallic hardware plate with screws at the C7-T1 level. XR/XR chest 2V IMPRESSION: No acute airspace disease. Consider chronic pulmonary disease. Electronically signed by: Jorge Alberto Capone MD 09/30/2024 11:22 AM EDT
== END 2024-09-30 10:06 | disposition home or self-care (01) ==
LOC: HO.HMGCX 10:05
PROVIDERS: PCP Internal Medicine; Visit Provider Physician Assistant
DX: J06.9 Acute upper respiratory infection, unspecified (principal); R05.9 Cough, unspecified
CPT/HCPCS: 71046; 99212

== ENCOUNTER 2024-09-30 10:05 | Outpatient (AMB) | payer MEDICARE, SELFPAY ==
--- NOTE | 2024-09-30 10:26 | MHC.OFFWIV ---
Intake Vital Signs 09/30/24 10:27 Weight 135 lb BP 120/80 Blood Pressure Location Lt brachial Position Sitting Pulse 86 Pulse Source Pulse Oximeter Temp 97.6 F Temp Source Oral Pulse Oximetry (%) 93 Oxygen Delivery Method Room Air Intake Visit Reasons: EP-chest pressure, cough, wheezing Intake Note: Patient here for chest tightness, cough and wheezing that has not improved Patient Tobacco Use Status: Former Tobacco user Allergies No Known Allergies Allergy (Verified 09/30/24 10:28) Do you need a note to return to daycare/school/sports/work: No HPI HPI Comments History of Present Illness Details History - The patient is a 69-year-old female presenting with worsening respiratory symptoms. - She reports experiencing persistent wheezing and chest tightness for approximately 10 days, notably at night, with no significant improvement. - She was seen at this clinic 3 days ago. Prior tests for COVID, flu, and RSV were negative. - She denies fever but confirms mild shortness of breath and a rattling sensation in the chest, cough and congestion. Denies fevers. - The prescribed inhaler has been used but its content status and effectiveness are unknown. - Tessalon Perles were being used for the cough with mild/partial confirmed relief reported by the patient. Physical Exam General: Cooperative, healthy appearing, comfortable and no acute distress Orientation/consciousness: Patient oriented x3 Limitations: No limitations Head: Normal to inspection Ears: Hearing grossly normal bilaterally, external ears normal, EAC with cerumen on left ear. right TM with fluid and erythema Nose: Normal external nose present, Normal nares present and No nasal discharge present Face and sinus: Normal facial exam and Yes sinuses nontender Mouth: Normal oral and palatal mucosa present and moist mucous membranes Throat: Yes tonsils normal, Yes uvula midline. Posterior oropharynx erythema Eyes: Appearance normal, both eyes and all related structures Neck: Normal visual inspection Respiratory: Clear to auscultation bilaterally. Normal respiratory effort, able to speak in complete sentences, no respiratory distress, not tachypneic, no tripod positioning and no use of accessory muscles Cardiovascular: Regular rate and rhythm. Normal S1 and S2 Skin: No rashes or lesions noted Neuro: Patient oriented x3 Extremities: Normal to inspection and Yes no clubbing, cyanosis or edema [facility] Medical History (Updated 09/27/24 @ 10:52 by Simran Maldonado PA-C) Atypical lymphocytosis Leukocytosis Urinary incontinence History of basal cell carcinoma Macrocytosis without anemia Total bilirubin, elevated Alcohol use History of chronic sinusitis Osteopenia of multiple sites Impaired fasting glucose Restless leg syndrome Surgical History History of fusion of cervical spine S/P FESS (functional endoscopic sinus surgery) H/O sinus surgery Hx of colonoscopy Family History Mother Dementia in corticobasal degeneration, Onset Age: 62 Sister Ovarian cancer, Onset Age: 65 Social History Housing: House Patient Tobacco Use Status: Former Tobacco user e-Cigarette/Vaping Use: Never Used Current occupational status: retired Cognitive needs: No Hearing needs: No Vision needs: Yes Review of Systems Const All systems reviewed & are unremarkable except as noted in HPI and below Physical Exam Vital Signs: Last Vital Signs Temp 97.6 F 09/30/24 10:27 Pulse 86 09/30/24 10:27 BP 120/80 09/30/24 10:27 Pulse Ox 93 09/30/24 10:27 Oxygen Delivery Method Room Air 09/30/24 10:27 Assessment & Plan Assessment & Plan (1) URI, acute: Code(s): J06.9 - Acute upper respiratory infection, unspecified Plan: O2 low at 92% on recheck, other VSS, pt well appearing and PE unremarkable. For the ongoing respiratory symptoms including pt reported wheezing, chest tightness, and decreased saturation, I advised a chest X-ray to evaluate potential underlying causes like pneumonia or extensive lung inflammation. A six-day steroid taper was initiated to manage inflammation and respiratory distress, with instructions on dosing to prevent sleep interruption. The potential initiation of a Z-Gt antibiotic course was considered based on length of illness, will RX 2 abx if PNA on CXR. I educated the patient on expected side effects from the steroid therapy. Steroid therapy observed improvement can guide and limit further interventions. Further, the imaging results will dictate any need for antibiotic prescription, and follow-up communication will occur swiftly once results are available. Asymptomatic fluid noted in the ear raises potential otitis media considerations only if further symptoms develop. I will monitor developments accordingly, ensuring the delivered care is continuous and reactive to findings. Patient was informed and verbally consented to the use of an ambient scribe for clinic note documentation during this visit Orders: Orders XR chest 2V Today R05.9 - Cough, unspecified Medications: New methylprednisolone PO PER PKG DIR for 6 days 21 ea 0RF Coding Level of Care Code Est Pt Level 4 (58059) Diagnoses URI, acute J06.9
[2024-09-30 10:27] VITALS: BP 120/80; PULSE 86; TEMP 36.4; O2SAT 93
--- OUTSIDE RECORDS SUMMARY | 2024-09-30 11:32 | XMS_ITS | Data Portability ---
Author Organization [facility]ade[facility], [address] Address [address] [place] [address] Assessment No assessment recorded. Plan of Treatment Reminders Order Date Submit Date Provider Last Modified By Organization Details Last Modified Time Details Appointments None recorded. Lab rapid strep group A, throat 2022 023 [facility], [address] [place] [address], [id number], 3 10:55:36 SARS CoV 2 (COVID-19) Ag, QL, IA, upper respiratory specimen 2022 023 [email or web address] [facility], [address] [place] [address], [id number], 3 10:55:37 Referral None recorded. Procedures None recorded. Surgeries None recorded. Imaging XR, chest, 2 view 2022 023 [facility], [address] [place] [address], [address], 3 13:18:14 Medication Orders ofloxacin 0.3 % eye drops 2022 023 [facility] #[id number], [address] [facility] [place], [id number], 3 10:57:18 loratadine 10 mg tablet 2022 023 [facility] #95345, [address] [place], [id number], 3 10:55:56 benzonatate 200 mg capsule 2022 023 [facility]44233, [address], [id number], 3 10:55:54 Zithromax Z-Gt 250 mg tablet 2022 023 [facility]78447, [address] [place], [id number], 3 10:56:04 Patient TargetsNo targets recorded. Patient Instructions Encounter Date Encounter Id Patient Instructions Last Modified By Organization Details Last Modified Time 12/20/2022 [id number] acute bronchitis education [email or web address] Not available 12/20/2022 10:55:33 bronchitis: care instructions Not available 12/20/2022 10:55:33 cough: care instructions [email or web address] Not available 12/20/2022 10:55:33 sore throat: car e instructions [email or web address] Not available 12/20/2022 10:55:33 Based on your presentation and exam, you are going diagnosed with Conjunctivitis. I am going to cover you for a bacterial infection in the eye with antibiotic eye drops. Sometimes these symptoms can be caused by a virus or allergies. Viral infections with spontaneously resolve after 7-10 days and do not require treatment. If it is an allergy cause sometime oral allergy medications will help with these symptoms or a allergy eye drop that can be purchased OTC. The following are my recommendations to help with your symptoms and this diagnosis: 1. Do not rub your eyes this can cause it to spread or damage the cornea of your eye. 2. Wash surfaces such as cell phones, remotes, door knob frequently, because this is how it is transmitted to others. 3. Do not wear contacts for at least 1 week if you have contacts. 4. No makeup 5. You can take Ibuprofen or Tylenol for discomfort if you are not allergic to them. 6. If you get lubricating eye drops and put them in the refrigerator - this can help with itching and discomfort. You should be seen again if you develop any of the following symptoms 1. Eye pain or pressure behind the eye. 2. Redness or significant swelling of the eyelid or around the eye 3. Headache 4. Fever > 100.5 5. No improvement in current symptoms in the next 1 week. Thank you for using [facility] today, please feel free to contact us with any questions or concerns. [email or web address] Not available 12/20/2022 10:56:31 Reason for Referral None Reported. Results Created Date Observation Date Name Description Value Unit Range Abnormal Flag Note LastModifiedBy Organization Detail LastModifiedTime 12/21/1912/20/2022 SARS CoV 2 (COVI D-19) Ag, QL, IA, upper respi rator y speci men Unknown Analyte Normal = Negati ve Not Available [address], [address], 12/20/2022 10:42:01 12/21/19 23 12/20/2022 SARS CoV 2 (COVI D-19) Ag, QL, IA, upper respi rator y speci men Unknown Analyte negati ve Not Available [address] [place], [address], 12/20/2022 10:42:01 12/21/19 23 12/20/2022 rapid strep group A, throa t Unknown Analyte Normal = Negati ve Not Available [address] [place] [address], [phone], 12/20/2022 10:16:49 12/21/19 23 12/20/2022 rapid strep group A, throa t Unknown Analyte negati ve Not Available [address] [place] [address], [place], [address], 12/20/2022 10:16:49 12/21/19 XR, chest , 2 view No observ ation record ed. [email or web address] Not Available 2022 13:02:42 07/14/20 23 XR, chest , 2 view No observ ation record ed. [email or web address] [address] [place], [address], 12/20/2022 13:18:14 Result Notes None recorded. Problems Name Problem SNOMED Code Status Onset Date Resolution Date Notes Provider Name and Address Organization Details Recorded Time Secondary restless legs syndrome 564243109 Active 023 LOUISE pa, [place] - [facility] 10:18:01 Problem Notes None recorded. Procedures Surgical History Date Name Laterality Status Provider Name and Address Organization Details Recorded Time nasal sinus procedure completed LOUISE RIZZO PA - [facility] 12/20/2022 10:20:17 operation on lumbar spine completed LOUISE RIZZO PA - [facility] 12/20/2022 10:20:30 Imaging Results Imaging Date Name Status LastModified by Organiz ation Details LastModified Time 12/20/2022 XR, chest, 2 view completed [email or web address] Information not available 12/20/2022 13:02:42 12/20/2022 XR, chest, 2 view completed [email or web address] [address] [place], [address], 12/20/2022 13:18:14 Procedure Notes None recorded. Medical Equipment None Reported. Allergies No known drug allergies Medications Name Sig Start Date Stop Date Status Note LastModified by Organization Details LastModified Time ofloxacin 0.3 % eye drops INSTILL 1 DROP INTO AFFECTED EYE(S) BY OPHTHALMIC ROUTE 4 TIMES PER DAY 2022 active Not Available Not Available Not Avai lable benzonatate 200 mg capsule Take 1 capsule 3 times a day by oral route. 2022 active Not Available Not Available Not Avai lable Zithromax Z-Gt 250 mg tablet Take 2 tablets 1 time a day for 1 day then one tablet daily for 4 days 2022 active Not Available Not Available Not Avai lable loratadine 10 mg tablet Take 1 tablet every day by oral route for 14 days. 2022 active Not Available Not Available Not Avai lable clonazepam active Not Available Not Av ailable Not Available calcium 26-vit D3-magnesium 15 active Not Available Not Available Not Available Vitals Date Recorded Body height Body mass index (BMI) Body weight Pain severity - 0-10 verbal numeric rating [Score] - Reported Respiratory rate Body temperature Oxygen saturation Oxygen saturation in Arterial blood by Pulse oximetry Heart rate Systolic blood pressure Diastolic blood pressure Provider Name and Address Organization Details Last Updated DateTime 3 165.1 cm 21.6 kg/m2 94060.0 1 g 5 18 /min 98.8 [degF] 99 % 99 % 88 /min 119 mm[Hg] 80 mm[Hg] LOUISE SO [facility] 3 10:23:01 Social History Question Answer Notes LastModified by Organizat ion Details LastModified Time Tobacco Smoking Status Former Smoker LOUISE pa, [place] - [facility] 12/20/2022 10:19:06 What Is Your Level Of Alcohol Consumption? Moderate Information not available 12/20/2022 Are You Currently Employed? Yes [employer] Information not available 12/20/2022 Do You Use Any Illicit Or Recreational Drugs? Yes Mja Information not available 12/20/2022 Have You Recently Traveled Abroad? No Information not available 12/20/2022 Are You Currently In School? No Information not available 12/20/2022 Sex: Unknown Functional Status None recorded. Mental Status None recorded. Family History Relationship Description Onset Age of this Age Resolved Age Notes LastModified by Organization Details LastModified Time Father Chronic hepatitis [email or web address] Not available 12/20 10:18:47 Mother Malignant tumor of breast [email or web address] Not available 12/20 10:18:55 Medical History No medical history recorded. Gynecological HistoryNo gynecological history recorded. Obstetrics History GPAL:G 0 P 0 0 0 0 Past Encounters Encounter ID Performer Location Encounter Start Date Encounter Closed Date Diagnosis/Indication Diagnosis SNOMED-CT Code Diagnosis ICD10 Code Diagnosis Note [id number] [facility] [address] [address] 07/04/2019 18:34:27 07/04/2019 19:17:20 [id number] [facility] [address] [facility] [place] [place] [address] 10/07/2021 10:36:42 10/07/2021 12:00:59 [id number] [facility] [address] [facility] [place] [address] 02/13/2018 16:11:30 02/13/2018 17:01:04 [id number] SEBASTIEN PETERSON [address] [address] [facility] [place] [address] 12/20/2022 09:44:05 12/20/2022 11:04:57 Acute pharyngitis 903982035 J02.9 Acute bronchitis 3901742 2 J20.9 Acute conj unctivitis of right eye 1132507811 97047 H10.31 Health Concerns Section Related Observation LastModified by Organization Detai ls LastModified Time None Recorded Concern Status LastModified by Organization Details LastModified Time None Recorded Advance Directives Directive None Recorded Payers Encounter Date Sequence Insurance Name Policy Number Policy Gaona Covered Member ID Gaona Member ID Guarantor Name 07/04/2019 1 [facility] H[place] BLUE (MEDICARE REPLACEMENT HMO) Jane Tapiasosa [id number] Jane Tapiasosa 10/07/2021 1 [facility] MEDIC[place] O BLUE (MEDICARE REPLACEMENT HMO) Jane Tapiasosa [id number] Jane Tapiasosa 12/20/2022 1 [facility] H[place] BLUE (MEDICARE REPLACEMENT HMO) Jane Tapiasosa [id number] Jane Tapiasosa Notes Date Note Type Note Provider Name and Address Organization Details Recorded Time 12/20/2022 text/html COVID-19 SymptomsReported bypatient.Notes:67 y/o female pt presents with ongoing cough, sore throat with congestion x 1 week with now right eye discharge with mild erythema. Pt denies eye pain, visual disturbance or other sx's. Pt has contacts only in one eye. SEBASTIEN PETERSON [facility] [place], [address], [place] - [facility] 12/20/2022 18:22:14 OBGyn Episode No OBEpisode recorded.
== END 2024-09-30 11:05 | disposition home or self-care (01) ==
PROVIDERS: PCP Internal Medicine; Visit Provider Physician Assistant
DX: J06.9 Acute upper respiratory infection, unspecified (principal)

== ENCOUNTER → 2024-09-30 11:01 | Outpatient (BNV) | payer MEDICARE, SELFPAY | PROVIDERS: PCP Internal Medicine; Visit Provider Radiology Diagnostic Radiology | DX: R05.9 Cough, unspecified (principal) | CPT/HCPCS: 71046 ==

== ENCOUNTER 2025-03-09 12:14 | Outpatient (AMB) | payer MEDICARE, SELFPAY ==
--- NOTE | 2025-03-09 12:50 | MHC.PC.OV ---
Vital Signs 03/09/25 12:55 Height 5 ft 4.5 in Weight 134 lb BMI 22.6 BP 110/80 Blood Pressure Location Lt brachial Position Sitting Respiration 16 Pulse 72 Pulse Source Pulse Oximeter Temp 98.0 F Temp Source Oral Pulse Oximetry (%) 94 Oxygen Delivery Method Room Air Intake Visit Reasons: Annual PE Intake Note: Pt is here today for her PE: last mammogram 05/02/24, bone density scan 02/14/22, Cologuard 01/22/25 Puncher Required: No Allergies No Known Allergies Allergy (Verified 03/09/25 13:03) Medication List - Last Reconciled 03/09/25 by Nereida Corbett MD clonazepam 0.5 mg PO BEDTIME multivitamin 1 tab PO DAILY Tobacco use date assessed: 03/09/25 Fall risk assessment: No Falls in past year Last assessed Fall Risk: 03/09/25 Dental Screening Dental Screen Date: 03/09/25 Did you have a dental visit in the last 12 months?: Yes Did you have a dental problem in the last 6 months where you did not have access to dental care?: No Was dental information given to patient?: Patient has dentist HPI Annual PE HPI Details 69-year-old lady here today for her physical exam. She is up-to-date with her screening mammogram, done at [facility], due again for repeat check in April 2025. Colon cancer screening is up-to-date with last Cologuard testing done January 2025 showing negative findings. She is overdue for a bone density scan. Last scan was ordered by her OBGYN Dr. Monique which showed presence of osteopenia at multiple sites. She takes clonazepam 0.5 mg at bedtime prescribed by Dr. Moreno for restless legs syndrome. She has history of basal cell CA, currently being followed at [facility] yearly [facility] Medical History (Updated 03/09/25 @ 13:42 by Nereida Corbett MD) Anxiety and depression Atypical lymphocytosis Leukocytosis Urinary incontinence History of basal cell carcinoma Macrocytosis without anemia Total bilirubin, elevated Alcohol use History of chronic sinusitis Osteopenia of multiple sites Impaired fasting glucose Restless leg syndrome Surgical History History of fusion of cervical spine S/P FESS (functional endoscopic sinus surgery) H/O sinus surgery Hx of colonoscopy Family History Mother Dementia in corticobasal degeneration, Onset Age: 62 Sister Ovarian cancer, Onset Age: 65 Social History Housing: House Patient Tobacco Use Status: Former Tobacco user e-Cigarette/Vaping Use: Never Used Current occupational status: retired Cognitive needs: No Hearing needs: No Vision needs: Yes Questionnaire PHQ-9 Over the last 2 weeks, how often have you been bothered by any of the following problems? 1. Little interest or pleasure in doing things: several days 2. Feeling down, depressed, or hopeless: several days 3. Trouble falling or staying asleep, or sleeping too much: not at all 4. Feeling tired or having little energy: several days 5. Poor appetite or overeating: not at all 6. Feeling bad about yourself - or that you are a failure or have let yourself or your family down: not at all 7. Trouble concentrating on things, such as reading the newspaper or watching television: several days 8. Moving or speaking so slowly that other people could have noticed. Or the opposite - being so fidgety or restless that you have been moving around a lot more than usual: not at all 9. Thoughts that you would be better off or of hurting yourself in some way: not at all Total score: 4 Depression Screening Interpretation: Positive (Started on sertraline today 25 mg daily, referred to mental health coordinator for assistance with getting therapist) Depression Screening Follow-up: New Medication prescribed, Community Mental Health Worker F/U and Follow-up Visit Requested Depression Screening Done: Yes 13572 - PHQ-9 Billing: Yes Source: Developed by Drs. Hector Lewis, Bonnie Mart, Darinel Alanis and colleagues, with an educational bryan from [employer]. Thrive Questionnaire Date Thrive assessed: 03/02/25 I am a: Patient What is your living situation today?: I have a steady place to live Within the past 12 months, did the food you bought not last and you didn't have the money to get more?: Never true Within the past 12 months, did you worry whether your food would run out before you got money to buy more?: Never true Do you have trouble paying for medicines?: No Do you have trouble getting transportation to medical appointments?: No Do you have trouble paying your heating and electricity bill?: No Do you have trouble taking care of your child, family member or friend?: No Do you have trouble with day-to-day activities such as bathing, preparing meals, shopping, managing finances, etc.?: No Are you currently unemployed and looking for a job?: No Are you interested in more education?: No Please select the resources that you would like help with: None Currently or been in a relationship where the following occur: No concerns reported THRIVE Score: 0 AUDIT C Alcohol Use Questionnaire (AUDIT-C) 1. How often do you have a drink containing alcohol?: 4 or more times a week 2. How many drinks containing alcohol do you have on a typical day when you are drinking?: 1 or 2 3. How often do you have six or more drinks on one occasion?: Never Total Score: 4 Score Reviewed/Action Taken: Yes CINTHIA-7 AMB Questionnaire CINTHIA-7 Date CINTHIA - 7 assessed: 03/09/25 Feeling nervous, anxious, or on edge: 1 = Several days Not being able to stop or control worryin = Not at all Worrying too much about different things: 0 = Not at all Trouble relaxin = Not at all Being so restless that it is hard to sit still: 0 = Not at all Becoming easily annoyed or irritable: 0 = Not at all Feeling afraid as if something awful might happen: 0 = Not at all Total CINTHIA-7 score (0-4 normal; 5-9 mild; 10-14 moderate; 15-21 severe): 1 Source: Developed by Drs. Hector Lewis, Bonnie Mart, Darinel Alanis and colleagues, with an educational bryan from [employer]. CINTHIA-7 Assessment Billing CINTHIA-7 Assessment Tool: CINTHIA-7 Assessment 80050 Review of Systems Const Denies body aches, Denies fatigue, Denies headache(s) and Denies weakness Eyes Details: Has an appointment with [facility] coming upe3 ENT Denies dizziness, Denies headache(s) and Denies nasal congestion Card Denies chest pain, Denies lightheadedness, Denies palpitations and Denies dyspnea Resp Denies cough, Denies dyspnea and Denies wheezing GI Denies abdominal pain, Denies change in bowel habits and Denies heartburn Denies hematuria, Denies urinary frequency, Denies dysuria and Denies urinary urgency Musc Reports no additional complaints Skin/Breast Details: currently being seen at [facility] dermatology Denies breast pain, Denies breast mass, Denies lesions and Denies rash Neuro Denies dizziness, Denies headache(s) and Denies weakness Psych Details: takes clonazepam half a tablet prn for restless leg syndrome started by her neurologist Dr. Moreno Reports as per HPI Endo Denies fatigue, Denies polydipsia, Denies polyuria and Denies palpitations Mikie/Lymph Denies easy bruising Aller/Immun Denies seasonal rhinorrhea and Denies wheezing Physical exam (Primary Care) Vital Signs: Last Vital Signs Temp 98.0 F 03/09/25 12:55 Pulse 72 03/09/25 12:55 Resp 16 03/09/25 12:55 BP 110/80 03/09/25 12:55 Pulse Ox 94 03/09/25 12:55 Oxygen Delivery Method Room Air 03/09/25 12:55 BMI result Body Mass Index 22.6 Tobacco/Smoking Status: Tobacco use Status Tobacco use date assessed 03/09/25 03/09/25 12:53 Patient Tobacco Use Status Former Tobacco user 03/09/25 12:53 e-Cigarette/Vaping Use Never Used 03/09/25 12:53 PHQ-9: PHQ-9 Score PHQ-9: Total score 4 03/09/25 13:04 Depression Screening Interpretation: Positive (Started on sertraline today 25 mg daily, referred to mental health coordinator for assistance with getting therapist) Depression Screening Follow-up: New Medication prescribed, Community Mental Health Worker F/U and Follow-up Visit Requested Thrive Assessment: Date of Thrive Assessment Date Thrive assessed 03/02/25 03/09/25 12:53 Currently or been in a relationship where the following occur: No concerns reported Const General: comfortable, no acute distress and alert Orientation/consciousness: patient oriented x3 HENMT Ears: external ears normal, TM's normal bilaterally and EAC's normal General nose exam: Normal external nose present Mouth: Normal oral and palatal mucosa present and moist mucous membranes Eyes General: appearance normal, both eyes and all related structures Conjunctivae: conjunctivae normal Sclerae: sclerae normal Pupils: Equal, round and reactive pupils present EOM: EOMs intact bilaterally Neck Neck: Yes full ROM, Yes no lymphadenopathy and Yes supple Chest Breast/axilla palpation: normal palpation of the breasts Resp Effort & Inspection: normal respiratory effort and able to speak in complete sentences Auscultation: clear to auscultation bilaterally Cardio Rate: regular rate Rhythm: regular rhythm Heart sounds: S1 normal heart sound present and S2 normal heart sound present GI Palpation (GI): Soft to palpation, nontender and no masses Auscultation: normal bowel sounds General: Yes deferred (sees Dr Montes) Back/Spine/Pelvis Back: No back tenderness Skin General skin exam: no rashes or lesions noted Neuro General: patient oriented x3, gait normal, tone normal, moves all extremities, Normal light touch and pain sensation and no focal motor deficits Cranial nerves: Yes CN's II-XII intact bilaterally and Yes Equal, round and reactive pupils present Cognition (Neuro): normal cognition Extrem General: Yes full ROM, Yes no joint enlargement, Yes no clubbing, cyanosis or edema and Yes no calf tenderness Psych Appearance: grossly normal and well kempt Mental Status: mental status grossly normal Speech and movement: Normal speech and movement present Affect: normal affect Coding Level of Care Code Est Pt Prev Care >65y(89755) Diagnoses Annual visit for general adult medical examination with abnormal findings Z00.01 Impaired fasting glucose R73.01 Osteopenia of multiple sites M85.89 Hyperlipidemia E78.5 Anxiety and depression F41.9; F32.A Additional Codes CINTHIA-7 Assessment Billing - CINTHIA-7 Assessment Tool: CINTHIA-7 Assessment 01594 ([id number]) PHQ-9 - 20615 - PHQ-9 Billing: Yes ([id number]) Assessment & Plan Assessment & Plan (1) Annual visit for general adult medical examination with abnormal findings: Code(s): Z00.01 - Encounter for general adult medical examination with abnormal findings Plan: Will check appropriate labs. Recommended dental visit every 6 months and regular eye exams, at least every 2 years. Take adequate calcium in diet and vitamin-D 3 at 2000 IU per cap once a day, in addition to weight-bearing exercises to help maintain good muscle tone and weight control. Instructed to do self-breast exam, and continue to get yearly mammogram. Currently sees [facility]BG[facility], Dr. Montes for her pelvic exam and being followed for osteopenia multiple sites. Had a negative Cologuard test done this year, repeat due again in 2027. Reminded to get her yearly flu vaccine and COVID booster, up-to-date with her pneumonia vaccination and shingles vaccines (2) Impaired fasting glucose: Code(s): R73.01 - Impaired fasting glucose Category: Medical Plan: Your previous fasting blood sugars were elevated above 100 mg/dL. Impaired glucose metabolism increases the risk for developing diabetes mellitus type 2, as well as heart attack and stroke later on. Lifestyle changes that promotes weight loss, healthy eating habits, and regular exercise are important, and can prevent the progression to diabetes (3) Osteopenia of multiple sites: Comment: Bone density Ordered by Dr. Carmona 03/25/2019, showing osteopenia in AP spine, left femoral neck and left hip Code(s): M85.89 - Other specified disorders of bone density and structure, multiple sites Category: Medical Plan: Patient currently being followed by OBGYN, request most recent bone density scan results. Encouraged to do regular weight-bearing exercise, take adequate calcium from dietary sources and take at least 2000 units of vitamin D3 supplements daily (4) Hyperlipidemia: Code(s): E78.5 - Hyperlipidemia, unspecified Category: Medical Plan: Fasting lipid panel ordered today (5) Anxiety and depression: Code(s): F41.9 - Anxiety disorder, unspecified; F32.A - Depression, unspecified Category: Medical Plan: Started on sertraline 25 mg per tablet to take initially 1 tablet once a day, may increase dose to 2 tablets or 50 mg on the 2nd week if no improvement of symptoms. Referred to our mental health coordinator Parul for assistance getting in to be seen by therapist and psychiatrist Orders: Orders Alanine Aminotransferase 03/11/25 E78.5 - Hyperlipidemia, unspecified, M85.89 - Other specified disorders of bone density and structure, multiple sites, R73.01 - Impaired fasting glucose Lipid Panel 03/11/25 E78.5 - Hyperlipidemia, unspecified, M85.89 - Other specified disorders of bone density and structure, multiple sites, R73.01 - Impaired fasting glucose Vitamin D 25-OH Total 03/11/25 E78.5 - Hyperlipidemia, unspecified, M85.89 - Other specified disorders of bone density and structure, multiple sites, R73.01 - Impaired fasting glucose Aspartate Amino Transferase 03/11/25 E78.5 - Hyperlipidemia, unspecified, M85.89 - Other specified disorders of bone density and structure, multiple sites, R73.01 - Impaired fasting glucose Glucose Fasting 03/11/25 E78.5 - Hyperlipidemia, unspecified, M85.89 - Other specified disorders of bone density and structure, multiple sites, R73.01 - Impaired fasting glucose Hemoglobin A1c 03/11/25 E78.5 - Hyperlipidemia, unspecified, M85.89 - Other specified disorders of bone density and structure, multiple sites, R73.01 - Impaired fasting glucose Medications: New sertraline 25 mg PO DAILY 30 tabs 1RF F32.A - Depression, unspecified, F41.9 - Anxiety disorder, unspecified
[2025-03-09 12:55] VITALS: BP 110/80; PULSE 72; RESP 16; TEMP 36.7; O2SAT 94; BMI 22.6
== END 2025-03-09 14:15 | disposition home or self-care (01) ==
LOC: HO.HMCC 12:15
PROVIDERS: PCP Internal Medicine; Visit Provider Internal Medicine
DX: Z00.01 Encounter for general adult medical examination with abnormal findings (principal); R73.01 Impaired fasting glucose; M85.89 Other specified disorders of bone density and structure, multiple sites; E78.5 Hyperlipidemia, unspecified; F41.9 Anxiety disorder, unspecified; F32.A Depression, unspecified

== ENCOUNTER → 2025-03-09 12:14 | Outpatient (BNVA) | payer MEDICARE, SELFPAY | PROVIDERS: PCP Internal Medicine; Visit Provider Internal Medicine | DX: Z00.01 Encounter for general adult medical examination with abnormal findings (principal); R73.01 Impaired fasting glucose; F32.A Depression, unspecified; M85.89 Other specified disorders of bone density and structure, multiple sites; E78.5 Hyperlipidemia, unspecified; F41.9 Anxiety disorder, unspecified | CPT/HCPCS: 96127; 99397 ==

== ENCOUNTER 2025-03-11 08:35 | Outpatient (REF) | payer MEDICARE, SELFPAY ==
[2025-03-11 10:49] LABS: Alanine Aminotransferase 16 U/L (0-31); Aspartate Amino Transferase 27 U/L (5-31); Cholesterol 240 mg/dL (<200); HDL Cholesterol 75 mg/dL (>40); Triglycerides 185 mg/dL (<150)
== END 2025-03-11 08:36 | disposition home or self-care (01) ==
LOC: HO.HMGCLDS 08:35
PROVIDERS: PCP Internal Medicine; Visit Provider Internal Medicine
DX: M85.89 Other specified disorders of bone density and structure, multiple sites (principal); E78.5 Hyperlipidemia, unspecified; R73.01 Impaired fasting glucose
CPT/HCPCS: 36415; 80061; 82306; 82947; 83036; 84450; 84460

== ENCOUNTER 2025-04-06 09:41 | Outpatient (AMB) | payer MEDICARE, SELFPAY ==
[2025-04-06 10:06] VITALS: BP 134/80; PULSE 79; RESP 16; TEMP 36.6; O2SAT 93; BMI 22.8
--- NOTE | 2025-04-06 10:06 | MHC.PC.OV ---
Vital Signs 04/06/25 10:06 Height 5 ft 4.5 in Weight 135 lb BMI 22.8 BP 134/80 Blood Pressure Location Rt brachial Position Sitting Respiration 16 Pulse 79 Pulse Source Pulse Oximeter Temp 97.9 F Temp Source Oral Pulse Oximetry (%) 93 Oxygen Delivery Method Room Air Intake Visit Reasons: 4 week follow up Intake Note: Pt is here today for her 4weeks f/u Allergies No Known Allergies Allergy (Verified 04/06/25 10:16) Medication List - Last Reconciled 04/06/25 by Nereida Corbett MD clonazepam 0.5 mg PO BEDTIME multivitamin 1 tab PO DAILY Tobacco use date assessed: 04/06/25 Fall risk assessment: No Falls in past year Last assessed Fall Risk: 04/06/25 Dental Screening Dental Screen Date: 04/06/25 Did you have a dental visit in the last 12 months?: Yes Did you have a dental problem in the last 6 months where you did not have access to dental care?: No Was dental information given to patient?: Patient has dentist HPI 4 week follow up HPI Details The patient is a 70-year-old female presenting for follow-up on her mental health and a review of recent lab work. She has elected not to take the prescribed sertraline and has instead chosen to pursue counseling for what she describes as a mix of anxiety and depression. She has had one intake session with a therapist at [facility] and has a follow-up appointment scheduled for April 25. The patient reports that her depression is exacerbated by the change of seasons and darkness, consistent with seasonal affective disorder. She recently experienced an episode of acute anxiety, which she described as a physical feeling that eventually passed on its own. Contributing stressors include her 's difficult recovery from back surgery in February, which has limited their social activities. For medication management, she takes half a pill of clonazepam at bedtime for restless legs, which she notes also helps with anxiety. Her restless leg symptoms primarily occur around 6 p.m. She keeps the other half of the clonazepam pill by her bedside in case it is needed but has not had to use it for an acute panic attack. The patient consumes two alcoholic drinks (martinis) per day. Recent lab results show a normal blood glucose of 97 mg/dL and an A1c of 5.4%,. Her total cholesterol decreased slightly to 240 mg/dL, with LDL cholesterol at 128 mg/dL. However, her triglycerides increased to 185 mg/dL from 173 mg/dL, which is attributed to alcohol and her diet, including rice and pasta. The patient confirms that she is up to date with her immunizations, including COVID-19, influenza, pneumonia, shingles, and RSV vaccines. [facility] Medical History (Updated 04/06/25 @ 10:41 by Nereida Corbett MD) Anxiety and depression Atypical lymphocytosis Leukocytosis Urinary incontinence History of basal cell carcinoma Macrocytosis without anemia Total bilirubin, elevated Alcohol use History of chronic sinusitis Osteopenia of multiple sites Impaired fasting glucose Restless leg syndrome Surgical History History of fusion of cervical spine S/P FESS (functional endoscopic sinus surgery) H/O sinus surgery Hx of colonoscopy Family History Mother Dementia in corticobasal degeneration, Onset Age: 62 Sister Ovarian cancer, Onset Age: 65 Social History Housing: House Patient Tobacco Use Status: Former Tobacco user e-Cigarette/Vaping Use: Never Used Current occupational status: retired Cognitive needs: No Hearing needs: No Vision needs: Yes Questionnaire PHQ-9 Over the last 2 weeks, how often have you been bothered by any of the following problems? 1. Little interest or pleasure in doing things: several days 2. Feeling down, depressed, or hopeless: not at all 3. Trouble falling or staying asleep, or sleeping too much: not at all 4. Feeling tired or having little energy: several days 5. Poor appetite or overeating: not at all 6. Feeling bad about yourself - or that you are a failure or have let yourself or your family down: several days 7. Trouble concentrating on things, such as reading the newspaper or watching television: several days 8. Moving or speaking so slowly that other people could have noticed. Or the opposite - being so fidgety or restless that you have been moving around a lot more than usual: several days 9. Thoughts that you would be better off or of hurting yourself in some way: not at all Total score: 5 Depression Screening Interpretation: Positive (Currently now seeing a therapist at [facility], does not want to start med medication at present time) Depression Screening Follow-up: Existing condition, In treatment and Community Mental Health Worker F/U Depression Screening Done: Yes 98714 - PHQ-9 Billing: Yes Source: Developed by Drs. Hector Lewis, Bonnie Mart, Darinel Alanis and colleagues, with an educational bryan from [employer]. Thrive Questionnaire Date Thrive assessed: 03/02/25 I am a: Patient What is your living situation today?: I have a steady place to live Within the past 12 months, did the food you bought not last and you didn't have the money to get more?: Never true Within the past 12 months, did you worry whether your food would run out before you got money to buy more?: Never true Do you have trouble paying for medicines?: No Do you have trouble getting transportation to medical appointments?: No Do you have trouble paying your heating and electricity bill?: No Do you have trouble taking care of your child, family member or friend?: No Do you have trouble with day-to-day activities such as bathing, preparing meals, shopping, managing finances, etc.?: No Are you currently unemployed and looking for a job?: No Are you interested in more education?: No Please select the resources that you would like help with: None Currently or been in a relationship where the following occur: No concerns reported THRIVE Score: 0 CINTHIA-7 AMB Questionnaire CINTHIA-7 Date CINTHIA - 7 assessed: 03/09/25 Feeling nervous, anxious, or on edge: 1 = Several days Not being able to stop or control worryin = Not at all Worrying too much about different things: 0 = Not at all Trouble relaxin = Not at all Being so restless that it is hard to sit still: 0 = Not at all Becoming easily annoyed or irritable: 0 = Not at all Feeling afraid as if something awful might happen: 0 = Not at all Total CINTHIA-7 score (0-4 normal; 5-9 mild; 10-14 moderate; 15-21 severe): 1 Source: Developed by Drs. Hector Lewis, Darinel Lake Kroenke and colleagues, with an educational bryan from [employer]. CINTHIA-7 Assessment Billing CINTHIA-7 Assessment Tool: CINTHIA-7 Assessment 48551 Review of Systems Const All systems reviewed & are unremarkable except as noted in HPI and below Physical exam (Primary Care) Vital Signs: Last Vital Signs Temp 97.9 F 04/06/25 10:06 Pulse 79 04/06/25 10:06 Resp 16 04/06/25 10:06 BP 134/80 04/06/25 10:06 Pulse Ox 93 04/06/25 10:06 Oxygen Delivery Method Room Air 04/06/25 10:06 BMI result Body Mass Index 22.8 Tobacco/Smoking Status: Tobacco use Status Tobacco use date assessed 04/06/25 04/06/25 10:13 Patient Tobacco Use Status Former Tobacco user 04/06/25 10:13 e-Cigarette/Vaping Use Never Used 04/06/25 10:13 PHQ-9: PHQ-9 Score PHQ-9: Total score 5 04/06/25 10:42 Depression Screening Interpretation: Positive (Currently now seeing a therapist at [facility], does not want to start med medication at present time) Depression Screening Follow-up: Existing condition, In treatment and Community Mental Health Worker F/U Thrive Assessment: Date of Thrive Assessment Date Thrive assessed 03/02/25 04/06/25 10:13 Currently or been in a relationship where the following occur: No concerns reported Const General: comfortable, no acute distress and alert Orientation/consciousness: patient oriented x3 HENMT Ears: external ears normal General nose exam: Normal external nose present Mouth: moist mucous membranes Eyes General: appearance normal, both eyes and all related structures Neck Neck: Yes full ROM, Yes no lymphadenopathy and Yes supple Resp Effort & Inspection: normal respiratory effort and able to speak in complete sentences Auscultation: clear to auscultation bilaterally Cardio Rate: regular rate Rhythm: regular rhythm Heart sounds: S1 normal heart sound present and S2 normal heart sound present GI Palpation (GI): Soft to palpation, nontender and no masses Auscultation: normal bowel sounds Neuro General: patient oriented x3, gait normal, tone normal, moves all extremities, Normal light touch and pain sensation and no focal motor deficits Cranial nerves: Yes CN's II-XII intact bilaterally Cognition (Neuro): normal cognition Extrem General: Yes full ROM, Yes no joint enlargement, Yes no clubbing, cyanosis or edema and Yes no calf tenderness Psych Appearance: grossly normal and well kempt Mental Status: mental status grossly normal Speech and movement: Normal speech and movement present Affect: normal affect Results Reviewed Results Reviewed: Name: Jane Baltazar Age/Sex: 69/F : 1955 Unit#: [id number] Attend Dr: Nereida Corbett MD Re03/11/25 Status: DEP REF Location: [facility] Disch: SPEC : [id number] DAVI: 03/11/25 STATUS: COMP REQ : [id number] RECD: 03/11/[address]: Nereida Corbett MD COMP: 03/11/25 ENTERED: 03/11/[address]: ORDERED: Glu Fasting, AST, ALT, Lipid Panel, Vitamin D 25-OH Test Result Flag Reference FBS 97 60-99 mg/dL AST (GOT) 27 5-31 U/L ALT (GPT) 16 0-31 U/L Triglyceride 185 H <150 mg/dL Desirable Triglyceride: less than 150 mg/dL Borderline High Triglyceride 150-199 mg/dL High Triglyceride: 200-499 mg/dL Very High Triglyceride: greater than or equal to 5OO mg/dL Cholesterol 240 H <200 mg/dL Desirable Cholesterol: less than 200 mg/dL Borderline High Cholesterol: 200-239 mg/dL High Cholesterol: greater than 239 mg/dL LDL Calculated 128 H <100 mg/dL Desirable LDL: less than 100 mg/dL Near Optimal/Above Optimal LDL: 110-129 mg/dL Borderline High LDL: 130-159 mg/dL High LDL: 160-189 mg/dL Very High LDL: greater than or equal to 190 mg/dL HDL 75 >40 mg/dL Desirable HDL: greater than 40 mg/dL Note: This HDL assay may give artificially low results in patients with liver disease. Vitamin D 25-OH 137.3 >30 ng/mL Health Based Reference Values* < 20 ng/mL Deficient 20-30 ng/mL Insufficient > 30 ng/mL Sufficient Coding Level of Care Code Est Pt Level 4 (55277) Complex EM visit Add On G2211 Diagnoses Anxiety and depression F41.9; F32.A Alcohol use Z72.89 Hyperlipidemia E78.5 Impaired fasting glucose R73.01 Restless leg syndrome G25.81 Additional Codes PHQ-9 - 13499 - PHQ-9 Billing: Yes ([id number]) CINTHIA-7 Assessment Billing - CINTHIA-7 Assessment Tool: CINTHIA-7 Assessment 12325 ([id number]) Assessment & Plan Assessment & Plan (1) Anxiety and depression: Code(s): F41.9 - Anxiety disorder, unspecified; F32.A - Depression, unspecified Category: Medical (2) Alcohol use: Code(s): Z72.89 - Other problems related to lifestyle Category: Social Hx (3) Hyperlipidemia: Code(s): E78.5 - Hyperlipidemia, unspecified Category: Medical (4) Impaired fasting glucose: Code(s): R73.01 - Impaired fasting glucose Category: Medical (5) Restless leg syndrome: Comment: Prescribed clonazepam 0.5 mg at bedtime by Dr. Tim Le Code(s): G25.81 - Restless legs syndrome Category: Medical Plan 1. 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 She has started counseling at [facility]. Plan: Continue with psychotherapy. Advised that clonazepam can be taken as needed for severe anxiety or panic attacks. Encouraged lifestyle modifications for seasonal symptoms, such as having bright lights, using her fireplace, and planning social outings. Will follow up with her therapist and consider a psychiatric consultation if needed. Strongly advised to cut back on her alcohol intake 2. Hyperlipidemia Laboratory results show borderline high cholesterol (Total 240, LDL 128) and elevated triglycerides (185), likely secondary to diet and daily alcohol consumption. Plan: Advised to start [id number] fish oil supplements, one or two capsules daily, to help lower triglycerides. Recommended dietary changes, including increasing consumption of oily fish like wild-caught salmon, as well as wheat germ and flaxseed, while reducing intake of rice and pasta. 3. Restless legs syndrome The patient effectively manages her symptoms with a low dose (half a pill) of clonazepam at bedtime. Plan: Continue taking clonazepam as needed at night for her restless legs. 4. Health Maintenance The patient is up-to-date on her immunizations, including COVID-19, influenza, pneumonia, shingles, and RSV. Plan: Patient is scheduled for her next annual physical in May of next year. Patient was informed and verbally consented to the use of an ambient scribe for clinic note documentation during this visit.
--- OUTSIDE RECORDS SUMMARY | 2025-04-06 11:34 | XMS_ITS | Data Portability ---
Author Organization SEBASTIEN Trin[facility], [address] Address [address] [place] [address] Assessment No assessment recorded. Plan of Treatment Reminders Order Date Submit Date Provider Last Modified By Organization Details Last Modified Time Details Appointments None recorded. Lab rapid strep group A, throat 2022 023 [email or web address] _[facility], [address] [place] [address], [id number], 3 10:55:36 SARS CoV 2 (COVID-19) Ag, QL, IA, upper respiratory specimen 2022 023 _[facility], [address] [place] [address], [id number], 3 10:55:37 Referral None recorded. Procedures None recorded. Surgeries None recorded. Imaging XR, chest, 2 view 2022 023 [facility], [address] [place] [address], [address], 3 13:18:14 Medication Orders ofloxacin 0.3 % eye drops 2022 023 [id number], [address] [place], [id number], 3 10:57:18 loratadine 10 mg tablet 2022 023 [facility] #57885, [address] [place], [id number], 3 10:55:56 benzonatate 200 mg capsule 2022 023 [id number], [address], [id number], 3 10:55:54 Zithromax Z-Gt 250 mg tablet 2022 [address] [facility], [address] [place], [id number], 3 10:56:04 Patient TargetsNo targets recorded. Patient Instructions Encounter Date Encounter Id Patient Instructions Last Modified By Organization Details Last Modified Time 12/20/2022 [id number] acute bronchitis education Not available 12/20/2022 10:55:33 bronchitis: care instructions [email or web address] Not available 12/20/2022 10:55:33 cough: care instructions Not available 12/20/2022 10:55:33 sore throat: car e instructions [email or web address] Not available 12/20/2022 10:55:33 Based on your [...] next 1 week. Thank you for using [employer] today, please feel free to contact us with any questions or concerns. [email or web address] Not available 12/20/2022 10:56:31 Reason for Referral None Reported. Results Created Date Observation Date Name Description Value Unit Range Abnormal Flag Note LastModifiedBy Organization Detail LastModifiedTime 12/21/1912/20/2022 SARS CoV 2 (COVI D-19) Ag, QL, IA, upper respi rator y speci men Unknown Analyte Normal = Negati ve Not Available [address], [address], 12/20/2022 10:42:01 12/21/19 23 12/20/2022 SARS CoV 2 (COVI D-19) Ag, QL, IA, upper respi rator y speci men Unknown Analyte negati ve Not Available [address] [place] [address], [phone], 12/20/2022 10:42:01 12/21/19 23 12/20/2022 rapid strep group A, throa t Unknown Analyte Normal = Negati ve Not Available [address] [place] [address], [phone], 12/20/2022 10:16:49 12/21/19 23 12/20/2022 rapid strep group A, throa t Unknown Analyte negati ve Not Available [address] [place] [address], [phone], 12/20/2022 10:16:49 12/21/19 XR, chest , 2 view No observ ation record ed. [email or web address] Not Available 2022 13:02:42 12/21/19 23 XR, chest , 2 view No observ ation record ed. [email or web address] [facility] [address] [facility] [place], [address], 12/20/2022 13:18:14 Result Notes None recorded. Problems Name Problem SNOMED Code Status Onset Date Resolution Date Notes Provider Name and Address Organization Details Recorded Time Secondary restless legs syndrome [id number] Active 023 LOUISE pa, [place] - [facility] 10:18:01 Problem Notes None recorded. Procedures Surgical History Date Name Laterality Status Provider Name and Address Organization Details Recorded Time nasal sinus procedure completed LOUISE RIZZO PA - [facility] 12/20/2022 10:20:17 operation on lumbar spine completed LOUISE RIZZO PA - [facility] 12/20/2022 10:20:30 Imaging Results None recorded. Procedure Notes None recorded. Medical Equipment None [...] blood by Pulse oximetry Heart rate Systolic And Diastolic Provider Name and Address Organization Details Last Updated DateTime 165.1 cm 21.6 kg/m2 84970.0 1 g 5 18 /min 98.8 [degF] 99 % 99 % 88 /min 119/80 mm[Hg] LOUISE RIZZO PA - [facility] 10:23:01 Social History Question Answer Notes LastModified by Organizat ion Details LastModified Time Tobacco Smoking Status Former Smoker LOUISE RIZZO null, PA - [facility] 12/20/2022 10:19:06 Have You Recently Traveled Abroad? No Information not available 12/20/2022 Are You Currently In School? No Information not available 12/20/2022 Sex: Unknown Functional Status Question Answer Note LastModified by Organizat ion Details LastModified Time Do you use any illicit or recreational drugs? Yes mja Information not available 12/20/2022 What is your level of alcohol consumption? 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 Family History Relationship Description Onset Age of this Age Resolved Age Notes LastModified by Organization Details LastModified Time Father Chronic hepatitis [email or web address] Not available 12/20 10:18:47 Mother Malignant neoplasm of breast [email or web address] Not available 12/20 10:18:55 Medical History No medical history recorded. Gynecological HistoryNo gynecological history recorded. Obstetrics History GPAL:G 0 P 0 0 0 0 Past Encounters Encounter ID Performer Location Encounter Start Date Encounter Closed Date Diagnosis/Indication Diagnosis SNOMED-CT Code Diagnosis ICD10 Code Diagnosis IMO Codes Diagnosis Note [id number] [address] [place] [address] 07/04/2019 18:34:27 07/04/2019 19:17:20 [id number] [address] [place] [address] 10/07/2021 10:36:42 10/07/2021 12:00:59 [id number] [address] [place] [address] 02/13/2018 16:11:30 02/13/2018 17:01:04 [id number] SEBASTIEN PETERSON [address] [facility] [place] [address] 12/20/2022 09:44:05 12/20/2022 11:04:57 Acute pharyngitis 739975313 J02.9 Acute bronchitis 5813768 2 J20.9 Acute conj unctivitis of right eye [id number] 98775 H10.31 Health Concerns Section Related Observation LastModified by Organization Detai ls LastModified Time None Recorded Concern Status LastModified by Organization Details LastModified Time None Recorded Advance Directives Directive None Recorded Payers Insurance Date Sequence Insurance Name Policy Number Policy Gaona Covered Member ID Gaona Member ID Guarantor Name 12/20/2022 1 [facility]: MEDICARE HMO BLUE (MEDICARE REPLACEMENT HMO) Jane Baltazar [id number] Jane Baltazar Notes Date Note Type Note Provider Name and Address Organization Details Recorded Time 12/20/2022 text/html COVID-19 SymptomsReported by [email or web address] y/o female pt presents with ongoing cough, sore throat with congestion x 1 week with now right eye discharge with mild erythema. Pt denies eye pain, visual disturbance or other sx's. Pt has contacts only in one eye. Sore throatReported by Patient CoughReported by Patient SEBASTIEN PETERSON Replaced by [facility] [place], [address], PA - [facility] 12/20/2022 18:22:14 OBGyn Episode No OBEpisode recorded.
== END 2025-04-06 10:50 | disposition home or self-care (01) ==
LOC: HO.HMCC 09:41
PROVIDERS: PCP Internal Medicine; Visit Provider Internal Medicine
DX: F41.9 Anxiety disorder, unspecified (principal); F32.A Depression, unspecified; Z72.89 Other problems related to lifestyle; E78.5 Hyperlipidemia, unspecified; R73.01 Impaired fasting glucose; G25.81 Restless legs syndrome

== ENCOUNTER → 2025-04-06 09:41 | Outpatient (BNVA) | payer MEDICARE, SELFPAY | PROVIDERS: PCP Internal Medicine; Visit Provider Internal Medicine | DX: G25.81 Restless legs syndrome (principal); F41.9 Anxiety disorder, unspecified; F32.A Depression, unspecified; E78.5 Hyperlipidemia, unspecified; R73.01 Impaired fasting glucose; Z72.89 Other problems related to lifestyle | CPT/HCPCS: 96127; 99212 ==

== ENCOUNTER 2025-05-06 09:31 | Outpatient (AMB) | payer MEDICARE, SELFPAY ==
[2025-05-06 09:51] VITALS: BP 132/80; PULSE 82; TEMP 36.6; O2SAT 96; BMI 23.0
--- NOTE | 2025-05-06 09:51 | AM.OFFWIN_ITS ---
Intake Vital Signs 05/06/25 09:51 Height 5 ft 4.5 in Weight 136 lb BMI 23.0 BP 132/80 Blood Pressure Location Rt brachial Position Sitting Pulse 82 Pulse Source Pulse Oximeter Temp 97.9 F Temp Source Oral Pulse Oximetry (%) 96 Oxygen Delivery Method Room Air Intake Visit Reasons: EP Possible UTI Intake Note: pt presents with concern for UTI c/o burning with voiding and urine frequency x2 days Patient Tobacco Use Status: Former Tobacco user Allergies No Known Allergies Allergy (Verified 05/06/25 09:52) Do you need a note to return to daycare/school/sports/work: No HPI HPI Comments History of Present Illness Details History - The patient is a 70 year old individua l presenting with symptoms consistent with a urinary tract infection x2 days. - Symptoms started on Friday night wi th an abrupt onset of burning with urination and urinary frequency. - The patient has a history of UTIs, but it has been years since the last one. - The patient took Azo yesterday for sym ptomatic relief. - The patient denies any fever, back saniya n, or blood in the urine. [facility] Medical History (Updated 05/06/25 @ 10:19 by Simran Maldonado PA-C) Anxiety and depression Atypical lymphocytosis Leukocytosis Urinary incontinence History of basal cell carcinoma Macrocytosis without anemia Total bilirubin, elevated Alcohol use History of chronic sinusitis Osteopenia of multiple sites Impaired fasting glucose Restless leg syndrome Surgical History History of fusion of cervical spine S/P FESS (functional endoscopic sinus surgery) H/O sinus surgery Hx of colonoscopy Family History Mother Dementia in corticobasal degeneration, Onset Age: 62 Sister Ovarian cancer, Onset Age: 65 Social History Housing: House Patient Tobacco Use Status: Former Tobacco user e-Cigarette/Vaping Use: Never Used Current occupational status: retired Cognitive needs: No Hearing needs: No Vision needs: Yes Review of Systems Narrative Review of Systems - Genitourinary: Reports dysuria and urinary frequency. - Genitourinary: Denies hematuria. - Musculoskeletal: Denies back pain. - Constitutional: Denies fever. All systems reviewed and are unremarkable except as noted in HPI Physical Exam Exam Exam: Physical Exam General: Cooperative, healthy appearing, comfortable, no acute distress and well developed Orientation: Patient oriented x3 Limitations: No limitations Head: Normal to inspection Ears: Hearing grossly normal bilaterally Face and sinus: Normal facial exam Neck: Normal visual inspection and Yes full ROM Respiratory: Normal respiratory effort and able to speak in complete sentences. Skin: No rashes or lesions noted Neuro: Patient oriented x3 Vital Signs: Last Vital Signs Temp 97.9 F 05/06/25 09:51 Pulse 82 05/06/25 09:51 BP 132/80 05/06/25 09:51 Pulse Ox 96 05/06/25 09:51 Oxygen Delivery Method Room Air 05/06/25 09:51 BMI result Body Mass Index 23.0 Assessment & Plan Assessment & Plan (1) UTI (urinary tract infection): Code(s): N39.0 - Urinary tract infection, site not specified Qualifiers: Urinary tract infection type: acute cystitis Hematuria presence: without hematuria Qualified Code(s): N30.00 - Acute cystitis without hematuria Plan Plan - A urine sample has been collected and will be sent for culture to guide antibiotic therapy. - UA + leuks, + nitrites. - A prescription for Cefuroxime to be taken every 12 hours for five days has been sent to [facility] in [place]. - The patient was advised that the antibiotic might be changed based on culture results, and a follow-up call will be made if necessary. Patient was informed and verbally consented to the use of an ambient scribe for clinic note documentation during this visit. Orders: Orders Urine Culture Today N39.0 - Urinary tract infection, site not specified Medications: New cefuroxime axetil 500 mg PO Q12H 10 tabs 0RF Coding Level of Care Code Est Pt Level 3 (37004) Diagnoses Acute cystitis without hematuria N30.00 Urinary tract infection type: acute cystitis Hematuria presence: without hematuria
== END 2025-05-06 10:14 | disposition home or self-care (01) ==
PROVIDERS: PCP Internal Medicine; Visit Provider Physician Assistant
DX: N30.00 Acute cystitis without hematuria (principal); Z13.9 Encounter for screening, unspecified

== ENCOUNTER 2025-05-06 09:31 | Outpatient (REF) | payer MEDICARE, SELFPAY ==
--- OUTSIDE RECORDS SUMMARY | 2025-05-06 10:14 | XMS_ITS | Data Portability ---
Author Organization SEBASTIEN Trinidad [facility], [address] Address [address] [place] [address] Assessment No assessment recorded. Plan of Treatment Reminders Order Date Submit Date Provider Last Modified By Organization Details Last Modified Time Details Appointments None recorded. Lab rapid strep group A, throat 2022 023 [email or web address] _[facility], [address] [place] [address], [phone], 3 10:55:36 SARS CoV 2 (COVID-19) Ag, QL, IA, upper respiratory specimen 2022 023 [email or web address] _[facility], [address] [place] [address], [phone], 3 10:55:37 Referral None recorded. Procedures None recorded. Surgeries None recorded. Imaging XR, chest, 2 view 2022 023 [facility], [address] [place] [address], [id number], 3 13:18:14 Medication Orders ofloxacin 0.3 % eye drops 2022 023 [facility] #[id number], [address] [place], [id number], 3 10:57:18 loratadine 10 mg tablet 2022 023 [facility] #[id number], [address] [place], [id number], 3 10:55:56 benzonatate 200 mg capsule 2022 023 [id number], [address] [place], [id number], 3 10:55:54 Zithromax Z-Gt 250 mg tablet 2022 023 [id number], [address] [place], [id number], 3 10:56:04 Patient TargetsNo targets recorded. Patient Instructions Encounter Date Encounter Id Patient Instructions Last Modified By Organization Details Last Modified Time 12/20/2022 [id number] acute bronchitis education [email or web address] Not available 12/20/2022 10:55:33 bronchitis: care instructions [email or web address] Not available 12/20/2022 10:55:33 cough: care instructions Not available 12/20/2022 10:55:33 sore throat: car e instructions [email or web address] Not available 12/20/2022 10:55:33 Based on your [...] next 1 week. Thank you for using [facility] today, please feel free to contact us with any questions or concerns. Not available 12/20/2022 10:56:31 Reason for Referral None Reported. Results Created Date Observation Date Name Description Value Unit Range Abnormal Flag Note LastModifiedBy Organization Detail LastModifiedTime 12/21/1912/20/2022 SARS CoV 2 (COVI D-19) Ag, QL, IA, upper respi rator y speci men Unknown Analyte Normal = Negati ve Not Available [address], [address], 12/20/2022 10:42:01 12/21/19 23 12/20/2022 SARS CoV 2 (COVI D-19) Ag, QL, IA, upper respi rator y speci men Unknown Analyte negati ve Not Available [address] [place] [address], [phone], 12/20/2022 10:42:01 12/21/19 23 12/20/2022 rapid strep group A, throa t Unknown Analyte Normal = Negati ve Not Available [address] [place] [address], [phone], 12/20/2022 10:16:49 12/21/19 23 12/20/2022 rapid strep group A, throa t Unknown Analyte negati ve Not Available [address] [place] [address], [phone], 12/20/2022 10:16:49 12/21/19 XR, chest , 2 view No observ ation record ed. [email or web address] Not Available 2022 13:02:42 12/21/19 23 XR, chest , 2 view No observ ation record ed. [email or web address] [facility] [address] [facility] [place], [address], 12/20/2022 13:18:14 Result Notes None recorded. 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 Information not available 12/20/2022 Mental Status None [...] ICD10 Code Diagnosis IMO Codes Diagnosis Note [id number] [address] [facility] [place] [address] 07/04/2019 18:34:27 07/04/2019 19:17:20 [id number] [address] [place] [address] 10/07/2021 10:36:42 10/07/2021 12:00:59 [id number] [address] [facility] [place] [address] 02/13/2018 16:11:30 02/13/2018 17:01:04 [id number] SEBASTIEN PETERSON [address] [facility] [place] [address] 12/20/2022 09:44:05 12/20/2022 11:04:57 Acute pharyngitis 284321959 J02.9 Acute bronchitis 0497432 2 J20.9 Acute conj unctivitis of right eye [id number] 56375 H10.31 Health Concerns Section Related Observation LastModified by Organization Detai ls LastModified Time None Recorded Concern Status LastModified by Organization Details LastModified Time None Recorded Advance Directives Directive None Recorded Payers Insurance Date Sequence Insurance Name Policy Number Policy Gaona Covered Member ID Gaona Member ID Guarantor Name 12/20/2022 1 [facility]: MEDICARE HMO BLUE (MEDICARE REPLACEMENT HMO) Jane Baltazar [id number] Jane Baltazar Notes Date Note Type Note Provider Name and Address Organization Details Recorded Time 12/20/2022 text/html COVID-19 SymptomsReported by [email or web address] y/o female pt presents with ongoing cough, sore throat with congestion x 1 week with now right eye discharge with mild erythema. Pt denies eye pain, visual disturbance or other sx's. Pt has contacts only in one eye. Sore throatReported by Patient CoughReported by Patient SEBASTIEN PETERSON [facility] [place], [address], [place] - [facility] 12/20/2022 18:22:14 OBGyn Episode No OBEpisode recorded.
== END 2025-05-06 09:32 | disposition home or self-care (01) ==
LOC: HO.LAB 09:31
PROVIDERS: PCP Internal Medicine
DX: N30.00 Acute cystitis without hematuria (principal)
CPT/HCPCS: 81003; 87086; 87088; 87186; 99212